=== PATIENT | female | born 1970 | race Caucasian/White ===

== ENCOUNTER 2020-05-03 06:01 | Emergency (ER) | payer OTHER ==
[2020-05-03] MEDS ORDERED: SODIUM CHLORIDE 0.9% 500 ML 500 ML IV STA (06:08)
[2020-05-03 06:13] VITALS: RESP 18
[2020-05-03 06:26] LABS: Basophils # (A) 0.1 k/uL (0-0.2); Basophils % (A) 1 %; Eosinophils # (A) 0.2 k/uL (0-0.7); Eosinophils % (A) 2 %; HCT 41.1 % (34.0-46.0); HGB 14.2 gm/dL (11.4-16.0); Lymphocytes # (A) 2.2 k/uL (1.0-4.8); Lymphocytes % (A) 21 %; MCH 30.6 pg (25.0-35.0); MCHC 34.5 g/dL (31.0-37.0); MCV 88.6 fL (80.0-100.0); Mean Platelet Volume 8.4; Monocytes # (A) 0.4 k/uL (0-1.0); Monocytes % (A) 4 %; Neutrophils # (A) 7.7 k/uL (1.3-7.7); Neutrophils % (A) 73 %; Platelet Count 178 k/uL (150-450); RBC 4.64 m/uL (3.80-5.40); RDW 12.2 % (11.5-15.5); WBC 10.6 k/uL (3.8-10.6)
[2020-05-03 06:36] LABS: ALT 12 U/L (4-34); AST 16 U/L (14-36); African American GFR (CKD) >90 (>60 ml/min/1.73 sqM); Albumin 3.4 g/dL (3.5-5.0); Alkaline Phosphatase <20 U/L (38-126); Anion Gap 4 mmol/L; Blood Urea Nitrogen 10 mg/dL (7-17); Calcium 8.7 mg/dL (8.4-10.2); Carbon Dioxide 24 mmol/L (22-30); Chloride 109 mmol/L (98-107); Glucose 96 mg/dL (74-99); Magnesium 1.5 mg/dL (1.6-2.3); Non-African American GFR(CKD) >90 (>60 ml/min/1.73 sqM); Sodium 137 mmol/L (137-145); Total Bilirubin 0.5 mg/dL (0.2-1.3); Total Protein 5.7 g/dL (6.3-8.2)
[2020-05-03 06:37] LABS: INR 1.1 (<1.2); Partial Thromboplastin Time 26.9 sec (22.0-30.0); Prothrombin Time 10.8 sec (9.0-12.0)
[2020-05-03] MEDS: fentaNYL (PF) 50 MCG/ML 2 ML AMP IVP PRN ×2 (06:40→09:05)
[2020-05-03] MEDS ORDERED: MAGNESIUM SULFATE-D5W PMX 1 GM in DEXTROSE/WATER 1 100ML.BAG IVPB ONE (06:40)
--- NOTE | 2020-05-03 07:20 | ED ---
Chest Pain HPI - General Chief Complaint: Chest Pain Stated Complaint: Chest Pain Time Seen by Provider: 05/03/20 06:08 Source: patient, EMS Mode of arrival: EMS - History of Present Illness Initial Comments: Ailin is a 50yo female with previous diagnosis of HTN, currently not on medications, currently not following with any primary care physician. Patient presents the ER today for evaluation of sudden onset of retrosternal chest pain. Patient reports pain woke her from sleep, had no associate shortness of breath, lightheadedness, diaphroesis, nausea or vomiting. She has no known cardiac disease, no history of blood clots. - Related Data Home Medications Medication Instructions Recorded Confirmed No Known Home Medications 05/03/20 05/03/20 Allergies Allergy/AdvReac Type Severity Reaction Status Date / Time bee venom protein (honey bee) Allergy Swelling Verified 05/03/20 08:25 Review of Systems ROS Statement: Those systems with pertinent positive or pertinent negative responses have been documented in the HPI. ROS Other: All systems not noted in ROS Statement are negative. EKG Findings - EKG Comments: EKG Findings:: Initial EKG was obtained at 6:09 AM, rate is 73 rhythm is sinus there is a normal axis, normal intervals, MO 142, QRS 72, QTc is 407 there are no acute ST elevations or depressions there is T-wave inversions laterally no evidence of acute ischemia or infarction. A posterior EKG was obtained due to chest pain and hypotension, EKG was obtained at 626 exam, rate is 76 rhythm is sinus there is no acute ST elevations or depressions no evidence of acute ischemia or infarction. Past Medical History Past Medical History: Hypertension History of Any Multi-Drug Resistant Organisms: None Reported Past Surgical History: Tubal Ligation Additional Past Surgical History / Comment(s): eye surgery Past Psychological History: No Psychological Hx Reported Smoking Status: Current every day smoker Past Alcohol Use History: None Reported Past Drug Use History: None Reported Course Vital Signs 05/03/20 05/03/20 05/03/20 06:01 07:38 07:55 Temperature 97.5 F L 98.2 F Pulse Rate 69 65 Respiratory 18 18 Rate Blood Pressure 91/51 94/43 86/47 Blood Pressure [Left Arm] Blood Pressure [Right Arm] O2 Sat by Pulse 100 99 Oximetry 05/03/20 05/03/20 05/03/20 08:05 08:06 08:15 Temperature Pulse Rate 73 Respiratory Rate Blood Pressure 109/52 Blood Pressure 107/49 [Left Arm] Blood Pressure 115/54 [Right Arm] O2 Sat by Pulse 100 Oximetry 05/03/20 05/03/20 05/03/20 08:30 08:45 09:00 Temperature 97.6 F Pulse Rate 78 72 80 Respiratory Rate Blood Pressure 103/48 104/48 107/49 Blood Pressure [Left Arm] Blood Pressure [Right Arm] O2 Sat by Pulse 99 99 99 Oximetry Chest Pain MDM - MDM She was seen and evaluated history is obtained from the patient this is a 50-year-old female with history of hypertension presenting with chest pain EKG was unremarkable Labs and imaging were ordered Chest x-ray was reviewed no significant abnormalities D-dimer was markedly elevated and a CT pulmonary embolism study was obtained which revealed a Timbo type A aortic dissection Patient had mild hypotension which improved with IV fluids, Patient care was discussed with [facility] in [place] were unable to accept the transfer Patient care was discussed with [facility], attempting to contact the thoracic surgeon She care was discussed with [facility] who cannot except the ascending dissections No callback from [facility] within 30 minutes decision was made to contact [facility] Awaiting callback from [facility] we received callback from [place] [employer] - Accepted by evangelina Meyers patient be taken to [facility] at bedside for transport Critical Care Time Critical Care Time: Yes Total Critical Care Time: 90 Critical Care Time: Critical Care Time 90 min Critical care time was exclusive of separately billable procedures and treating other patients and teaching time. Critical care was necessary to treat or prevent imminent or life-threatening deterioration. Given the critical condition in which the patient arrived, the patient was immediately assessed by myself and the nurse, and cardiac monitoring initiated due to the potential for rapid decompensation of the patient's clinical condition. During the course of the patients stay, I spent a considerable amount of time at the bedside performing serial re-evaluations of the patient's hemodynamic and clinical status because of the recognized potential threat to life or limb in this condition. I then had a chance to review not only all of the available current laboratory and radiographic studies obtained today, but I also reviewed old records available to me at the time. Additionally, any ancillary information available including patient access coordinator records were reviewed. Sequential vital signs were obtained. 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 Specs Out of Hospital Transfer - Requested Specifics: Surgical ICU ([facility])
--- NOTE | 2020-05-03 07:23 | XR ---
EXAMINATION TYPE: XR chest 2V DATE OF EXAM: 05/03/2020 COMPARISON: Prior chest x-ray 06/29/2018 HISTORY: Chest pain TECHNIQUE: Frontal and lateral views of the chest are obtained. FINDINGS: There is no focal air space opacity, pleural effusion, or pneumothorax seen. The cardiac silhouette size is within normal limits. The osseous structures are intact. IMPRESSION: No acute cardiopulmonary process.
[2020-05-03] MEDS ORDERED: SODIUM CHLORIDE 0.9% 1,000 ML IV ONE (07:56)
--- NOTE | 2020-05-03 08:02 | CT ---
EXAMINATION TYPE: CT chest angio for PE DATE OF EXAM: 05/03/2020 COMPARISON: HISTORY: Chest pain CT DLP: 238 mGycm Automated exposure control for dose reduction was used. CONTRAST: CT Chest for pulmonary embolism performed with without and with IV Contrast, patient injected with 10 0 ml mL of Isovue 370. FINDINGS: LUNGS: The lungs are grossly clear, there is no concerning parenchymal mass or nodule identified. Ca lcified granuloma present at the right lung apex posteriorly There is no pleural effusion or pneumoth orax seen. The tracheobronchial tree is patent. MEDIASTINUM: There is satisfactory enhancement of the pulmonary artery and its branches, there is no CT evidence for pulmonary embolism. There are no greater than 1 cm hilar or mediastinal lymph nodes. No pericardial effusion is seen. AORTA: Ascending aorta shows abnormal lower attenuation fluid surrounding the anterior and lateral m argins of the contrast column extending from the level of the root causing mass effect on the lumen, the aorta diameter measures approximately 4.5 cm, ascending aorta diameter is approximately 4.7 cm, t here is mass effect on the transverse aorta and dissection plane is noted to extend within the descen ding aorta. Celiac axis is not included on the exam, splenic artery does show enhancement. OTHER: No additional significant abnormality is seen. IMPRESSION: Timbo type A dissection of the thoracic aorta, results relayed telephonically to Dr. Baez at th e time of interpretation at exam.
[2020-05-03] MEDS ORDERED: fentaNYL (PF) 50 MCG/ML 2 ML AMP IVP STA (08:53)
[2020-05-03 09:12] VITALS: BP 107/49; PULSE 80; TEMP 97.6
== END 2020-05-03 09:16 | disposition other institution (70) ==
LOC: EC 06:01
DX: I71.01 Dissection of thoracic aorta (principal); R79.89 Other specified abnormal findings of blood chemistry; F17.200 Nicotine dependence, unspecified, uncomplicated; Z91.030 Bee allergy status; Z53.8 Procedure and treatment not carried out for other reasons
CPT/HCPCS: 99291; 99292; 96365; 96375; 96376; 96361; 36415; 93005; 85379; 83880; 80053; 83735; 84484; 85025; 85610; 85730; 71046; 71275; J3010; J3475; Q9967

== ENCOUNTER 2021-07-29 19:29 | Emergency (ER) | payer OTHER ==
[2021-07-29 20:21] VITALS: TEMP 98.4
[2021-07-29] MEDS ORDERED: ASPIRIN 81 MG PO STA (20:56)
[2021-07-29 21:34] LABS: Basophils # (A) 0.1 k/uL (0-0.2); Basophils % (A) 1 %; Eosinophils # (A) 0.2 k/uL (0-0.7); Eosinophils % (A) 2 %; HCT 40.7 % (34.0-46.0); HGB 13.8 gm/dL (11.4-16.0); Lymphocytes # (A) 1.9 k/uL (1.0-4.8); Lymphocytes % (A) 19 %; MCH 28.5 pg (25.0-35.0); MCV 83.9 fL (80.0-100.0); Mean Platelet Volume 9.2; Monocytes # (A) 0.5 k/uL (0-1.0); Monocytes % (A) 5 %; Neutrophils # (A) 7.3 k/uL (1.3-7.7); Neutrophils % (A) 73 %; Platelet Count 187 k/uL (150-450); RBC 4.85 m/uL (3.80-5.40)
--- NOTE | 2021-07-29 21:37 | XR ---
EXAMINATION TYPE: XR chest 2V DATE OF EXAM: 07/29/2021 COMPARISON: NONE TECHNIQUE: PA and lateral views submitted. HISTORY: Chest pain FINDINGS: The lungs are clear and there is no pneumothorax, pleural effusion, or focal pneumonia. Dilation of the aorta again noted which was noted on the prior CT scan of 05/03/2020 compatible with patient's hi story of aortic dissection. Postsurgical changes. No overt failure or pleural effusion. No definite c onsolidation. IMPRESSION: 1. Postsurgical change with prominence of the upper mediastinum which would be compatible with the maureen taylor's history of previous aortic dissection. 2. Prominent COPD in the left hemidiaphragm could represent air within the stomach. The patient has a n acute abdomen are concerning for free air correlate with CT scan..
[2021-07-29 21:43] LABS: ALT 19 U/L (4-34); AST 22 U/L (14-36); African American GFR (CKD) >90 (>60 ml/min/1.73 sqM); Albumin 4.2 g/dL (3.5-5.0); Alkaline Phosphatase 27 U/L (38-126); Anion Gap 10 mmol/L; Blood Urea Nitrogen 8 mg/dL (7-17); Calcium 9.9 mg/dL (8.4-10.2); Carbon Dioxide 23 mmol/L (22-30); Chloride 106 mmol/L (98-107); Glucose 121 mg/dL (74-99); Magnesium 1.8 mg/dL (1.6-2.3); Non-African American GFR(CKD) 80 (>60 ml/min/1.73 sqM); Potassium 3.9 mmol/L (3.5-5.1); Sodium 139 mmol/L (137-145); Total Bilirubin 0.6 mg/dL (0.2-1.3)
[2021-07-29 21:53] LABS: Prothrombin Time 10.8 sec (9.0-12.0)
[2021-07-29 21:56] LABS: Partial Thromboplastin Time 20.8 sec (22.0-30.0)
[2021-07-29 22:16] VITALS: RESP 18
--- NOTE | 2021-07-29 23:08 | ED ---
Chest Pain HPI - General Chief Complaint: Chest Pain Stated Complaint: L arm pain Time Seen by Provider: 07/29/21 20:51 Source: patient, family, RN notes reviewed, old records reviewed Mode of arrival: ambulatory Limitations: no limitations - History of Present Illness Initial Comments: Patient is a 51-year-old female, with history of aortic aneurysm, presenting to the emergency Department with complaints of intermittent chest tightness and left arm pain and has been started this morning. She states the tetanus has been very intermittent, lasts for only a few seconds. Currently she has no chest pain or tightness. She is describing some mild left upper arm pain in the triceps area. No left shoulder pain. No jaw pain. She denies any nausea or vomiting, no abdominal pain. She denies any viral type symptoms such as cough or congestion. Patient has no further complaints at this time. Upon arrival to the ER her vitals are stable. - Related Data Home Medications Medication Instructions Recorded Confirmed No Known Home Medications 05/03/20 05/03/20 Allergies Allergy/AdvReac Type Severity Reaction Status Date / Time bee venom protein (honey bee) Allergy Swelling Verified 07/29/21 20:21 Review of Systems ROS Statement: Those systems with pertinent positive or pertinent negative responses have been documented in the HPI. ROS Other: All systems not noted in ROS Statement are negative. EKG Findings - EKG Comments: EKG Findings:: Normal sinus rhythm, possible left atrial enlargement, no signs of acute ST segment elevation, she does have inverted T waves in lead 1 which is a change from her previous on 05/03/2020. Ventricular rate 85, LA interval 150, QT 374. EKG reviewed with Dr. Morales. Past Medical History Past Medical History: Hypertension Additional Past Medical History / Comment(s): Aortic Aneurysm History of Any Multi-Drug Resistant Organisms: None Reported Past Surgical History: Tubal Ligation Additional Past Surgical History / Comment(s): eye surgery Past Psychological History: No Psychological Hx Reported Smoking Status: Current every day smoker Past Alcohol Use History: None Reported Past Drug Use History: None Reported General Exam - General Exam Comments Initial Comments: GENERAL: Patient is well-developed and well-nourished. Patient is nontoxic and in no acute distress. HEAD: Atraumatic, normocephalic. EYES: Pupils equal round and reactive to light, extraocular movements intact, sclera anicteric, conjunctiva are normal. Eyelids were unremarkable. ENT: TMs normal, nares patent, oropharynx clear without exudates. Moist mucous membranes. NECK: Normal range of motion, supple without lymphadenopathy or JVD. LUNGS: Unlabored respirations. Breath sounds clear to auscultation bilaterally and equal. No wheezes rales or rhonchi. HEART: Regular rate and rhythm without murmurs, rubs or gallops. ABDOMEN: Soft, nontender, normoactive bowel sounds. No guarding, no rebound. No masses appreciated. : Deferred MUSCULOSKELETAL: Normal extremities with adequate strength and normal range of motion, no pitting or edema. No clubbing or cyanosis. NEUROLOGICAL: Patient is alert and oriented x 3. Motor and sensory are also intact. Cranial nerves II through XII grossly intact. Symmetrical smile. Normal speech, normal gait. PSYCH: Normal mood, normal affect. SKIN: Warm, Dry, normal turgor, no rashes or lesions noted. Limitations: no limitations Course Vital Signs 07/29/21 07/29/21 07/29/21 20:16 21:21 23:53 Temperature 98.4 F Pulse Rate 95 78 84 Respiratory 22 18 18 Rate Blood Pressure 158/95 138/86 126/79 O2 Sat by Pulse 98 95 95 Oximetry Chest Pain [facility] Patient is a 51-year-old female with history of of aortic aneurysm, presenting with intermittent chest tightness throughout today as well as some mild left arm pain. She has no chest pain or tightness here in the ER. Her vitals are stable. Patient's EKG shows normal sinus rhythm, no signs of acute ST segment elevation, she does have an inverted T-wave in lead 1 which is a change from her previous. Since labs are unremarkable including normal troponin. Patient is resting comfortably. I discussed with her these findings and recommended admission to observation for serial troponins as well as cardiac consult. Patient declined this. She states she just wants to go home and she'll follow- up with her dog food dough mixer tomorrow. Discussed the possibilities of the adverse events such as heart attack, patient continues wanting to go home. Patient will leave AMA. I urged her to follow up with her dog food dough mixer. Strict return parameters were discussed with her and she verbalized understanding. Case discussed with Dr. Morales. Disposition Clinical Impression: Chest pain Disposition: Left Against Medical Advice Condition: Stable Instructions (If sedation given, give patient instructions): Chest Pain (ED) Additional Instructions: Please return to the Emergency Department if symptoms worsen or any other concerns. Please follow up with your dog food dough mixer and/or family doctor. Is patient prescribed a controlled substance at d/c from ED?: No Referrals: Dallin Wise DO [Primary Care Provider] - 1-2 days Time of Disposition: 23:08
[2021-07-29 23:54] VITALS: BP 126/79; PULSE 84
== END 2021-07-29 23:54 | disposition left against medical advice (07) ==
LOC: EC 19:29
DX: R07.9 Chest pain, unspecified (principal); I10 Essential (primary) hypertension; F17.200 Nicotine dependence, unspecified, uncomplicated; Z98.51 Tubal ligation status
CPT/HCPCS: 36415; 71046; 80053; 83735; 83880; 84484; 85025; 85610; 85730; 93005; 99285

== ENCOUNTER 2021-10-20 12:40 | Observation (INO) | payer SELFPAY ==
--- NOTE | 2021-10-20 13:03 | ED ---
General Adult HPI - General Chief complaint: Chest Pain Stated complaint: chest pain, warm feeling throughout body Time Seen by Provider: 10/20/21 12:48 Source: patient, RN notes reviewed, old records reviewed Mode of arrival: ambulatory Limitations: no limitations - History of Present Illness Initial comments: Patient is a 51-year-old female with past medical history remarkable for aortic dissection type A status post repair one year ago, hypertension who presents emergency Department complaining of acute onset of chest pain. Pain started approximately 11:30am and I evaluated the patient at nearly 1 PM. She states she had sudden onset of chest pain and a feeling of "tiredness" in strange sensation watch over her. She states the chest pain is currently gone, however she still has a feeling of tiredness. Denies any shortness of breath, abdominal pain, nausea, vomiting. Denies any back pain, lightheadedness, dizziness. Denies any numbness at this time. She is able to ambulate. Denies any fevers, chills, cough, sick contacts. Has no other acute complaints at this time. Was not vaccinated for COVID-19. Presents over concern for the chest pain. Described chest pain as a throbbing, achy sensation substernally that does not radiate and is not currently present. Symptoms started after taking coricidin for the first time today. - Related Data Home Medications Medication Instructions Recorded Confirmed Aspirin EC [Ecotrin Low Dose] 81 mg PO DAILY 10/20/21 10/20/21 Atorvastatin [Lipitor] 80 mg PO HS 10/20/21 10/20/21 Carvedilol [Coreg] 25 mg PO BID 10/20/21 10/20/21 Guaifenesin/Dextromethorphan 1 tab PO Q6H PRN 10/20/21 10/20/21 [Coricidin Hbp Softgel] Allergies Allergy/AdvReac Type Severity Reaction Status Date / Time bee venom protein (honey bee) Allergy Swelling Verified 10/20/21 13:37 Review of Systems ROS Statement: Those systems with pertinent positive or pertinent negative responses have been documented in the HPI. Review of Systems: CONST: Denies fever EYES: Denies blurry vision ENT: Denies nasal congestion C/V: Endorses chest pain earlier that is since resolved. RESP: Denies shortness of breath GI: Denies abdominal pain : Denies dysuria SKIN: Denies rash. MSK: Denies joint pain. NEURO: Denies headache ROS Other: All systems not noted in ROS Statement are negative. Past Medical History Past Medical History: Hypertension Additional Past Medical History / Comment(s): Aortic Aneurysm dissection in 2019 History of Any Multi-Drug Resistant Organisms: None Reported Past Surgical History: Coronary Bypass/CABG, Tubal Ligation Additional Past Surgical History / Comment(s): eye surgery, double bypass 2019 Past Psychological History: No Psychological Hx Reported Smoking Status: Current every day smoker Past Alcohol Use History: None Reported Past Drug Use History: None Reported General Exam - General Exam Comments Initial Comments: General: Appears in no acute distress. HEAD: Normal with no signs of head trauma. EYES: PERRLA, EOMI, conjunctiva normal, no discharge. Pupils are 3 mm and equal bilaterally. 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 ENT: Hearing grossly intact, normal oropharynx. RESPIRATORY: Clear breath sounds bilaterally. No wheezes, rales, or rhonchi. C/V: Regular rate and rhythm. S1 and S2 auscultated, no edema, peripheral pulses 2+ and intact throughout. ABD: Abd is soft, nontender, nondistended EXT: Normal range of motion, no obvious deformity SKIN: No rashes or lesions observed on exposed skin. NEURO: Alert and oriented x 4. Cranial nerves II-XII intact. No focal sensory or strength deficits. Able to ambulate. Cerebellar function is intact as evident by normal finger to nose testing. NIH is 0. GCS is 15. Limitations: no limitations Course Vital Signs 10/20/21 12:45 Temperature 98 F Pulse Rate 86 Respiratory 18 Rate Blood Pressure 189/91 O2 Sat by Pulse 98 Oximetry Medical Decision Making - Medical Decision Making Based on the patient's presentation and physical exam, I'm concerned for cardiopulmonary cause for current symptoms. With her history of aortic dissection, as well as the subjective paresthesias following the onset of chest pain, we'll obtain CT angiogram of the chest, abdomen, pelvis to evaluate the aorta and the dissection repair. She was in agreement this plan. She is currently a symptomatically and resting comfortably. Aspirin will be held until after CT imaging. We also obtain a cardiac workup including troponin, EKG. She was in agreement this plan. EKG showed no signs of acute ischemia. Laboratory studies are remarkable for negative troponin. Remainder of her labs are unremarkable. CT angiogram rev ealed the aortic dissection repair of the arch and descending aorta. Patient has a patent dissection of the descending aorta which appears stable and unchanged except for the patency. There is no extension of the dissection and no new blockage. I discussed this with the radiologist on-call, Dr. Benoit we were both in agreement that the dissection is stable with no acute change. On reevaluation, patient is feeling improved at this time. I discussed the results of her laboratory studies and imaging. Explained that I would like to admitted to the hospital for further observation and evaluation by cardiology for left side chest pain. She was in agreement this plan. We discussed that he r symptoms could be secondary to starting Coricidin earlier today. She'll be connected to continuous cardiac monitoring and we will trend her troponin. She was in agreement this plan. I spoke with the band reamer machine operator on-call, Dr. Johnston who accepted the consult. We discussed aspirin she will be given 325 mg of aspirin. No indication for IV heparin at this time. I spoke with the admitting physician, Dr. Mas who accepted the patient. She was therefore admitted in stable condition to [facility] telemetry. - Lab Data Result diagrams: 10/20/21 13:09 10/20/21 13:09 Lab Results 10/20/21 10/20/21 10/20/21 Range/Units 13:09 13:09 13:09 WBC 8.2 (3.8-10.6) k/uL RBC 5.12 (3.80-5.40) m/uL Hgb 15.1 (11.4-16.0) gm/dL Hct 43.9 (34.0-46.0) % MCV 85.8 (80.0-100.0) fL MCH 29.4 (25.0-35.0) pg MCHC 34.3 (31.0-37.0) g/dL RDW 13.5 (11.5-15.5) % Plt Count 282 (150-450) k/uL MPV 8.5 Neutrophils % 69 % Lymphocytes % 22 % Monocytes % 5 % Eosinophils % 2 % Basophils % 1 % Neutrophils # 5.6 (1.3-7.7) k/uL Lymphocytes # 1.8 (1.0-4.8) k/uL Monocytes # 0.4 (0-1.0) k/uL Eosinophils # 0.1 (0-0.7) k/uL Basophils # 0.0 (0-0.2) k/uL PT 10.6 (9.0-12.0) sec INR 1.0 (<1.2) APTT 24.2 (22.0-30.0) sec Sodium 137 (137-145) mmol/L Potassium 4.0 (3.5-5.1) mmol/L Chloride 102 (98-107) mmol/L Carbon Dioxide 26 (22-30) mmol/L Anion Gap 9 mmol/L BUN 10 (7-17) mg/dL Creatinine 0.95 (0.52-1.04) mg/dL Est GFR (CKD-EPI)AfAm 82 (>60 ml/min/1.73 sqM) Est GFR (CKD-EPI)NonAf 71 (>60 ml/min/1.73 sqM) Glucose 138 H (74-99) mg/dL Calcium 9.6 (8.4-10.2) mg/dL Magnesium 2.0 (1.6-2.3) mg/dL Total Bilirubin 0.7 (0.2-1.3) mg/dL AST 16 (14-36) U/L ALT 15 (4-34) U/L Alkaline Phosphatase 34 L (38-126) U/L Troponin I (0.000-0.034) ng/mL Total Protein 7.5 (6.3-8.2) g/dL Albumin 4.3 (3.5-5.0) g/dL 10/20/21 Range/Units 13:09 WBC (3.8-10.6) k/uL RBC (3.80-5.40) m/uL Hgb (11.4-16.0) gm/dL Hct (34.0-46.0) % MCV (80.0-100.0) fL MCH (25.0-35.0) pg MCHC (31.0-37.0) g/dL RDW (11.5-15.5) % Plt Count (150-450) k/uL MPV Neutrophils % % Lymphocytes % % Monocytes % % Eosinophils % % Basophils % % Neutrophils # (1.3-7.7) k/uL Lymphocytes # (1.0-4.8) k/uL Monocytes # (0-1.0) k/uL Eosinophils # (0-0.7) k/uL Basophils # (0-0.2) k/uL PT (9.0-12.0) sec INR (<1.2) APTT (22.0-30.0) sec Sodium (137-145) mmol/L Potassium (3.5-5.1) mmol/L Chloride (98-107) mmol/L Carbon Dioxide (22-30) mmol/L Anion Gap mmol/L BUN (7-17) mg/dL Creatinine (0.52-1.04) mg/dL Est GFR (CKD-EPI)AfAm (>60 ml/min/1.73 sqM) Est GFR (CKD-EPI)NonAf (>60 ml/min/1.73 sqM) Glucose (74-99) mg/dL Calcium (8.4-10.2) mg/dL Magnesium (1.6-2.3) mg/dL Total Bilirubin (0.2-1.3) mg/dL AST (14-36) U/L ALT (4-34) U/L Alkaline Phosphatase (38-126) U/L Troponin I <0.012 (0.000-0.034) ng/mL Total Protein (6.3-8.2) g/dL Albumin (3.5-5.0) g/dL - EKG Data -: EKG Interpreted by Me EKG Comments: 12-lead Electrocardiogram Interpretation Note EKG was reviewed and interpreted by myself. 12-lead ECG performed at 1300 is interpreted by me as revealing normal sinus rhythm at a rate of 88 beats per minute. [place] is normal. VT interval is 156 ms, QRS duration is 94 ms, QTc is 428 ms.. There were no ST or T wave abnormalities to suggest myocardial ischemia or injury. R wave progression across the precordium was satisfactory. By my interpretation this EKG is non-diagnostic for acute ischemia. Disposition Clinical Impression: Chest pain of unknown etiology, History of repair of dissecting aneurysm of ascending thoracic aorta Disposition: ADMITTED IP TO THIS HOSP Condition: Stable
[2021-10-20 13:36] LABS: Partial Thromboplastin Time 24.2 sec (22.0-30.0); Prothrombin Time 10.6 sec (9.0-12.0)
[2021-10-20 13:39] LABS: Basophils % (A) 1 %; Eosinophils # (A) 0.1 k/uL (0-0.7); Eosinophils % (A) 2 %; HCT 43.9 % (34.0-46.0); HGB 15.1 gm/dL (11.4-16.0); Lymphocytes # (A) 1.8 k/uL (1.0-4.8); Lymphocytes % (A) 22 %; MCH 29.4 pg (25.0-35.0); MCHC 34.3 g/dL (31.0-37.0); MCV 85.8 fL (80.0-100.0); Mean Platelet Volume 8.5; Monocytes # (A) 0.4 k/uL (0-1.0); Monocytes % (A) 5 %; Neutrophils # (A) 5.6 k/uL (1.3-7.7); Neutrophils % (A) 69 %; Platelet Count 282 k/uL (150-450); RBC 5.12 m/uL (3.80-5.40); RDW 13.5 % (11.5-15.5); WBC 8.2 k/uL (3.8-10.6)
[2021-10-20 13:40] LABS: Albumin 4.3 g/dL (3.5-5.0); Calcium 9.6 mg/dL (8.4-10.2); Total Bilirubin 0.7 mg/dL (0.2-1.3); Total Protein 7.5 g/dL (6.3-8.2)
--- NOTE | 2021-10-20 13:56 | CT ---
EXAMINATION TYPE: CT angio thor/abd pel aorta DATE OF EXAM: 10/20/2021 COMPARISON: 05/03/2020 HISTORY: history of dissection repair. Chest pain CT DLP: 1866.9 mGycm Automated exposure control for dose reduction was used. Contrast: None Technique: Axial images 5 mm thick sections. Reconstructed images in the coronal and sagittal plane. Three-D reconstructed images performed by the technologist on a separate computer are reviewed. FINDINGS: There is a three-vessel arch. There appears to be a fold within the ascending thoracic aorta. This co uld be the residual of a prior dissection. There is a dissection at the distal descending thoracic aorta with 2 flow lumens. Superior mesenteric artery and celiac axis are patent. Renal arteries are patent bilaterally. Dissection extends to the mid abdominal aorta. No aneurysmal dilatation is evident. No extravasation of contrast is evident. Th is appears improved from the comparison CT of the chest of 05/03/2020. There appears to be a vascular structure running adjacent to the aortic arch and descending thoracic aorta. Bifurcation of the aorta appears normal. Common iliac arteries internal and external iliac arteries a re patent. The common femoral arteries are patent. IMPRESSION: 1. PATENT AORTIC DISSECTION WITHIN THE DISTAL DESCENDING THORACIC AORTA EXTENDING TO THE MID ABDOMINA L AORTA.
[2021-10-20] MEDS ORDERED: ASPIRIN 81 MG PO STA (14:27)
[2021-10-20] MEDS ORDERED: NALOXONE 0.4 MG/ML 1 ML VIAL IV PRN (14:32)
[2021-10-20] MEDS ORDERED: ONDANSETRON 4 MG/2 ML VIAL IVP PRN (14:32)
[2021-10-20] MEDS ORDERED: ACETAMINOPHEN TAB 325 MG TAB PO PRN (14:32)
[2021-10-20 16:56] LABS: HCT 42.2 % (34.0-46.0); HGB 14.1 gm/dL (11.4-16.0); MCH 28.7 pg (25.0-35.0); MCHC 33.4 g/dL (31.0-37.0); Mean Platelet Volume 8.5; Platelet Count 249 k/uL (150-450); RBC 4.91 m/uL (3.80-5.40); RDW 12.8 % (11.5-15.5); WBC 11.9 k/uL (3.8-10.6)
[2021-10-20] MEDS: HEPARIN SODIUM,PORCINE/PF 5,000 UNIT/0.5 ML SYRINGE SQ SCH (19:35)
[2021-10-20] MEDS: carvediloL 12.5 MG TAB PO SCH (19:40)
--- NOTE | 2021-10-20 20:52 | HP ---
HISTORY AND PHYSICAL CHIEF COMPLAINT: Chest pain. HISTORY OF PRESENT ILLNESS: This 51-year-old woman with a past medical history of hypertension, aortic aneurysm dissection in 12/08, repaired elsewhere, history of CAD, being followed by Dr. Wise in the outpatient setting, apparently had chest pain in the anterior part of the chest which started this morning. It was sharp in character, short-lasting, but subsequently patient had a warm feeling and some feeling of tiredness and a strange sensation all over her. The patient came to [facility] and was admitted for further evaluation and treatment. WBC was 11.9. The troponins were negative. The patient had a thoracic aortic CT scan which I reviewed personally; aortic dissection within the distal descending thoracic aortic extending to the mid abdominal aortic artery was noted, which is unchanged compared to the previous CT scan. The patient was admitted for further evaluation and treatment. Cardiology has been consulted. There is no history of any fever, rigors or chills. No history of headache, loss of consciousness, seizures at this time. PAST MEDICAL HISTORY: History of CAD, CABG, tubal ligation, history of hypertension, history of aortic aneurysm dissection, as mentioned earlier. HOME MEDICATIONS: Guaifenesin, Coreg, Lipitor, Ecotrin. Doses are reviewed. ALLERGIES: HONEY BEE. FAMILY HISTORY: No history of heart disease or strokes in the family. SOCIAL HISTORY: History of smoking. No history of alcohol intake. REVIEW OF SYSTEMS: ENT: No diminished hearing. No diminished vision. CARDIOVASCULAR SYSTEM: As mentioned earlier. RESPIRATORY SYSTEM: As mentioned earlier. GI: No nausea, vomiting, diarrhea. : No dysuria. NERVOUS SYSTEM: No numbness, weakness. ALLERGY/IMMUNOLOGY: No asthma or hay fever. MUSCULOSKELETAL: As mentioned earlier. HEMATOLOGY/ONCOLOGY: No history of anemia. ENDOCRINE: No history of diabetes or hypothyroidism. CONSTITUTIONAL: As mentioned earlier. DERMATOLOGY: Negative. RHEUMATOLOGY: Negative. PSYCHIATRY: As mentioned earlier. PHYSICAL EXAMINATION: Patient alert and oriented x3. Pulse 86, blood pressure 136/80, respiration 20, temperature 98 degrees, pulse ox 96% on room air. HEENT: Conjunctivae normal. NECK: No jugular venous distention. CARDIOVASCULAR: S1, S2 muffled. RESPIRATION: Breath sounds diminished at the bases. No rhonchi. No crackles. ABDOMEN: Soft, nontender. No mass palpable. LEGS: No edema. No swelling. NERVOUS SYSTEM: Higher functions as mentioned earlier. Moves all 4 limbs. No focal motor or sensory deficit. LYMPHATICS: No lymph node palpable in neck, axillae or groin. SKIN: No ulcer, rash, bleeding. JOINTS: No active deforming arthropathy. LABS: CBC within normal limits. Otherwise, glucose 138. CT scan noted. ASSESSMENT: 1. Chest pain. Rule out coronary artery disease. 2. History of aortic dissection and repair previously. 3. History of hypertension. 4. History of nicotine dependence. 5. Increased white count. 6. Increased random glucose. RECOMMENDATIONS AND DISCUSSION: In this 51-year-old woman who presented with multiple complex medical issues, we will monitor the patient closely, continue the current medications, continue symptomatic treatment. Otherwise, cardiology consultation. We will resume the home medications. Guarded prognosis because of multiple complex medical issues. Further recommendations to follow. A copy of this dictation is being forwarded to Dr. Wise, who is the primary physician. MMODL / IJN: [id number] /
[2021-10-20] MEDS ORDERED: ATORVASTATIN 80 MG TAB PO SCH (21:00)
[2021-10-21] MEDS: HEPARIN SODIUM,PORCINE/PF 5,000 UNIT/0.5 ML SYRINGE SQ SCH ×2 (02:42→07:49)
[2021-10-21 07:48] VITALS: TEMP 98.1
[2021-10-21] MEDS: carvediloL 12.5 MG TAB PO SCH (07:49)
--- NOTE | 2021-10-21 08:21 | XR ---
EXAMINATION TYPE: XR chest 1V portable DATE OF EXAM: 10/21/2021 COMPARISON: Chest x-ray 07/29/2021 HISTORY: Aortic dissection, abnormal chest x-ray TECHNIQUE: Single frontal view of the chest is obtained. FINDINGS: There is no focal air space opacity, pleural effusion, or pneumothorax seen. The cardiac silhouette size is stable. There are overlying leads, patient is post median sternotomy. The osseou s structures are intact. IMPRESSION: No acute process.
[2021-10-21] MEDS ORDERED: ASPIRIN 81 MG PO SCH (09:00)
[2021-10-21 09:14] LABS: Basophils # (A) 0.04 X 10*3/uL (0.00-0.10); Basophils % (A) 0.5 %; Eosinophils # (A) 0.13 X 10*3/uL (0.04-0.35); Eosinophils % (A) 1.5 %; HCT 40.4 % (37.2-46.3); HGB 13.3 g/dL (12.0-15.0); Lymphocytes # (A) 2.08 X 10*3/uL (0.90-5.00); Lymphocytes % (A) 23.8 %; MCH 28.5 pg (27.0-32.0); MCHC 32.9 g/dL (32.0-37.0); MCV 86.5 fL (80.0-97.0); Mean Platelet Volume 11.6 fL (9.5-12.2); Monocytes # (A) 0.47 X 10*3/uL (0.20-1.00); Monocytes % (A) 5.4 %; Neutrophils # (A) 5.99 X 10*3/uL (1.80-7.70); Neutrophils % (A) 68.5 %; Platelet Count 228 X 10*3/uL (140-440); RBC 4.67 X 10*6/uL (4.10-5.20); RDW 12.7 % (11.5-14.5); WBC 8.74 X 10*3/uL (4.50-10.00)
[2021-10-21 09:33] LABS: Anion Gap 13.2 mmol/L (10.00-18.00); BUN/Creat Ratio 9.11 Ratio (12.00-20.00); Blood Urea Nitrogen 8.2 mg/dL (9.0-27.0); Calcium 9.4 mg/dL (8.7-10.3); Carbon Dioxide 22.8 mmol/L (20.0-27.5); Non-African American GFR(CKD) 75.1 (60.0-200.0); Potassium 4.2 mmol/L (3.5-5.5)
--- NOTE | 2021-10-21 10:56 | P.CRDCN ---
History of Present Illness History of present illness: HISTORY OF PRESENTING ILLNESS This is a pleasant 51-year-old female past medical history significant for aortic dissection type A status post repair in May 03, 2020, 2 vessel CABG on May 03, 2020 as well, hypertension, dyslipidemia. She follows in the office with Dr. Small at [facility], she has a follow appointment in December 2021. We have been asked to see in consultation for chest pain. Patient presents to the ER with complaints of chest pain. Yesterday, she was watching TV, had an episode of left sided sharp discomfort. Non-radiating, non-exertional. She states it lasted about 15 seconds. She had associated "feeling warm and tingling" and felt lightheaded. She denies diaphoresis, nausea, vomiting, palpitations, shortness of breath, lower extremity edema, fatigue, weakness, syncope or near syncope. She denies any specific aggravating or alleviating factors. She denies symptoms of orthopnea or PND. She denies and history of [place], Stroke, Diabetes. She is a non-smoker. She states she took Coricidin twice before the episode for prophylaxis since she was around a family member with a cold. DIAGNOSTICS EKG reveals sinus rhythm, heart rate 80, nonspecific STT wave abnormality, T wave inversion in lateral leads. Prior EKG with similar findings Chest xray no acute cardiopulmonary process. Thoracic CT revealed patent iliac dissection within the distal ascending thoracic aorta extending to the mid abdominal aorta. No aneurysmal dilatation is evident. No extrication of contrast is evident. Renal arteries are patent bilaterally Laboratory reviewed, CBC unremarkable, sodium 137, potassium 4.0, BUN 10, serum creatinine 0.9, magnesium 2.0, troponin negative 3, covid-19 negative Current home medications include carvedilol 25 mg twice a day, atorvastatin 80 mg nightly, aspirin 81 mg daily, guaifenesin/dextromethophan PRN REVIEW OF SYSTEMS At the time of my exam: CONSTITUTIONAL: Denies fever or chills. CARDIOVASCULAR: Denies chest pain, shortness of breath, orthopnea, PND or palpitations. RESPIRATORY: Denies cough. GASTROINTESTINAL: Denies abdominal pain, diarrhea, constipation, nausea or vomiting. MUSCULOSKELETAL: Denies myalgias. NEUROLOGIC: Denies numbness, tingling, headache or weakness. ENDOCRINE: Denies fatigue, weight change, polydipsia or polyurina. GENITOURINARY: Denies burning, hematuria or urgency with micturation. HEMATOLOGIC: Denies history of anemia or bleeding. PHYSICAL EXAMINATION Blood pressure 141/80, heart rate 80, afebrile, saturations greater than 92% on room air CONSTITUTIONAL: No apparent distress. HEENT: Head is normocephalic. Pupils are equal, round. Sclerae anicteric. Mucous membranes of the mouth are moist. No JVD. No carotid bruit. CHEST EXAMINATION: Lungs are clear to auscultation. No chest wall tenderness is noted on palpation or with deep breathing. HEART EXAMINATION: Regular rate and rhythm. S1, S2 heard. Systolic ejection murmur at apex noted ABDOMEN: Soft, nontender. Positive bowel sounds. EXTREMITIES: 2+ peripheral pulses, no lower extremity edema and no calf tenderness. SKIN: warm, dry NEUROLOGIC EXAMINATION: Patient is awake, alert and oriented x3. ASSESSMENT Chest pain, atypical, acute coronary syndrome has been ruled out, likely musculoskeletal or anxiety Aortic dissection type A status post repair in May 03, 2020 History of 2 vessel CABG on May 03, 2020 History of Hypertension Dyslipidemia PLAN An acute coronary event has been ruled out with no EKG evidence of ischemia and negative cardiac enzymes. From a cardiology perspective, patient stable to be discharged home. Follow up with her primary quality assurance technician Dr. Small Thank you kindly for this consultation. Nurse Practitioner note has been reviewed, I agree with a documented findings and plan of care. Patient was seen and examined. Past Medical History Past Medical History: Hypertension Additional Past Medical History / Comment(s): Aortic Aneurysm dissection in 2019 History of Any Multi-Drug Resistant Organisms: None Reported Past Surgical History: Coronary Bypass/CABG, Tubal Ligation Additional Past Surgical History / Comment(s): eye surgery, double bypass 2019 Past Psychological History: No Psychological Hx Reported Smoking Status: Current every day smoker Past Alcohol Use History: None Reported Past Drug Use History: None Reported Medications and Allergies Home Medications Medication Instructions Recorded Confirmed Type Aspirin EC [Ecotrin Low Dose] 81 mg PO DAILY 10/20/21 10/20/21 History Atorvastatin [Lipitor] 80 mg PO HS 10/20/21 10/20/21 History Carvedilol [Coreg] 25 mg PO BID 10/20/21 10/20/21 History Guaifenesin/Dextromethorphan 1 tab PO Q6H PRN 10/20/21 10/20/21 History [Coricidin Hbp Softgel] Allergies Allergy/AdvReac Type Severity Reaction Status Date / Time bee venom protein (honey bee) Allergy Swelling Verified 10/20/21 13:37 Physical Exam Vitals: Vital Signs Temp Pulse Resp BP Pulse Ox 10/21/21 02:25 91 20 120/66 96 10/20/21 22:40 85 20 134/84 97 10/20/21 19:40 98.0 F 96 20 149/95 98 10/20/21 16:58 86 20 156/80 96 10/20/21 15:15 91 20 147/81 97 10/20/21 13:05 87 20 170/90 97 10/20/21 12:45 98 F 86 18 189/91 98 Results 10/21/21 06:51 10/21/21 06:51 Cardiac Enzymes 10/20/21 10/20/21 10/20/21 Range/Units 13:09 13:09 16:13 AST 16 (14-36) U/L Troponin I <0.012 <0.012 (0.000-0.034) ng/mL 10/20/21 Range/Units 21:22 AST (14-36) U/L Troponin I <0.012 (0.000-0.034) ng/mL Coagulation 10/20/21 Range/Units 13:09 PT 10.6 (9.0-12.0) sec APTT 24.2 (22.0-30.0) sec CBC 10/20/21 10/20/21 Range/Units 13:09 16:13 WBC 8.2 11.9 H (3.8-10.6) k/uL RBC 5.12 4.91 (3.80-5.40) m/uL Hgb 15.1 14.1 (11.4-16.0) gm/dL Hct 43.9 42.2 (34.0-46.0) % Plt Count 282 249 (150-450) k/uL Comprehensive Metabolic Panel 10/20/21 Range/Units 13:09 Sodium 137 (137-145) mmol/L Potassium 4.0 (3.5-5.1) mmol/L Chloride 102 (98-107) mmol/L Carbon Dioxide 26 (22-30) mmol/L BUN 10 (7-17) mg/dL Creatinine 0.95 (0.52-1.04) mg/dL Glucose 138 H (74-99) mg/dL Calcium 9.6 (8.4-10.2) mg/dL AST 16 (14-36) U/L ALT 15 (4-34) U/L Alkaline Phosphatase 34 L (38-126) U/L Total Protein 7.5 (6.3-8.2) g/dL Albumin 4.3 (3.5-5.0) g/dL Current Medications Generic Name Dose Route Start Last Admin Trade Name Freq PRN Reason Stop Dose Admin Acetaminophen 650 mg 10/20/21 14:32 Acetaminophen Tab 325 Mg Tab PO Q6HR PRN Mild Pain or Fever > 100.5 Aspirin 81 mg 10/21/21 09:00 Aspirin 81 Mg PO DAILY [facility] Atorvastatin Calcium 80 mg 10/20/21 21:00 10/20/21 21:17 Atorvastatin 80 Mg Tab PO 80 mg HS JOHN Administration Carvedilol 25 mg 10/20/21 17:30 10/20/21 19:40 Carvedilol 12.5 Mg Tab PO 25 mg BID-W/MEALS JOHN Administration Heparin Sodium (Porcine) 5,000 unit 10/20/21 16:00 10/21/21 02:42 Heparin Sodium,Porcine/Pf 5,000 Unit/0.5 Ml Syringe SQ Not Given Q8HR JOHN Naloxone HCl 0.2 mg 10/20/21 14:32 Naloxone 0.4 Mg/Ml 1 Ml Vial IV Q2M PRN Opioid Reversal Ondansetron HCl 4 mg 10/20/21 14:32 Ondansetron 4 Mg/2 Ml Vial IVP Q8HR PRN Nausea And Vomiting 10/20/21 16:13 10/20/21 13:09
[2021-10-21 11:36] VITALS: BP 135/91
[2021-10-21 13:38] VITALS: PULSE 86; RESP 18
--- NOTE | 2021-10-22 06:54 | DS ---
DISCHARGE SUMMARY DATE OF SERVICE: 10/21/2021 FINAL DIAGNOSES: 1. Chest pain possibly musculoskeletal, myocardial infarction ruled out. 2. History of aortic dissection repair previously. 3. History of coronary artery disease, coronary artery bypass grafting. 4. History of hypertension. 5. History of nicotine dependence. 6. History of increased WBC. 7. Increased random blood sugar. DISCHARGE DISPOSITION: The patient discharged in stable condition with guarded prognosis. HISTORY OF PRESENT ILLNESS: This is a 51-year-old woman with a past medical history of multiple medical problems as mentioned earlier, being followed by Dr. Wise in the outpatient setting admitted with chest pain as mentioned earlier. The patient had recent dissection and procedure including 2 vessel bypass elsewhere. The patient was monitored closely. Myocardial infarction ruled out. CT scan did not show any new abnormalities. The dissection part was visualized in the lower part of the aorta. The patient is asymptomatic and keen on going home. The patient will be discharged in stable condition with guarded prognosis. On exam, vitals are stable. Cardiovascular: S1, S2. Abdomen soft. Nervous System: No focal deficits. Labs are also within normal limits. DISCHARGE INSTRUCTIONS: 1. Diet is cardiac diet. 2. Activity limited until followup. 3. Follow up with Dr. Wise 2 to 3 days. 4. Follow up with Cardiology as recommended. MEDICATIONS: 1. Coreg 25 mg p.o. b.i.d. 2. Guaifenesin as before. 3. Ecotrin 81 mg daily. 4. Lipitor 80 mg q.h.s. 5. Tylenol p.r.n. MMODL / IJN: [id number] / [facility]LANDDerek
== END 2021-10-21 13:36 | disposition home or self-care (01) ==
LOC: EC 12:40 → 6NMEDSUR 14:32
PROVIDERS: ADMIT Internal Medicine; ATTEND Internal Medicine
DX: R07.9 Chest pain, unspecified (principal); R07.2 Precordial pain; R20.2 Paresthesia of skin; R42 Dizziness and giddiness; Z20.822 Contact with and (suspected) exposure to COVID-19; I71.2 Thoracic aortic aneurysm, without rupture; I25.10 Atherosclerotic heart disease of native coronary artery without angina pectoris; I10 Essential (primary) hypertension; F17.200 Nicotine dependence, unspecified, uncomplicated; E78.5 Hyperlipidemia, unspecified; Z79.82 Long term (current) use of aspirin; Z79.899 Other long term (current) drug therapy; Z91.030 Bee allergy status; Z95.1 Presence of aortocoronary bypass graft; Z98.51 Tubal ligation status
CPT/HCPCS: 99285; 96372; 36415; 93005; 80053; 80048; 83735; 84484; 85025 ×2; 85027; 85610; 85730; 87635; 71045; 71275; 74174; G0378 ×2; Q9967; J1644

== ENCOUNTER 2022-04-29 20:00 | Emergency (ER) | payer OTHER ==
[2022-04-29 20:16] VITALS: BP 157/95; PULSE 93; RESP 18; TEMP 98.2
[2022-04-29 20:54] LABS: Basophils # (A) 0.1 k/uL (0-0.2); Basophils % (A) 1 %; Eosinophils # (A) 0.2 k/uL (0-0.7); Eosinophils % (A) 2 %; HCT 42.7 % (34.0-46.0); HGB 14.5 gm/dL (11.4-16.0); Lymphocytes # (A) 1.8 k/uL (1.0-4.8); Lymphocytes % (A) 13 %; MCH 28.5 pg (25.0-35.0); MCHC 33.9 g/dL (31.0-37.0); MCV 83.9 fL (80.0-100.0); Mean Platelet Volume 8.5; Monocytes # (A) 0.4 k/uL (0-1.0); Monocytes % (A) 3 %; Neutrophils # (A) 10.7 k/uL (1.3-7.7); Neutrophils % (A) 80 %; Platelet Count 252 k/uL (150-450); RBC 5.08 m/uL (3.80-5.40); RDW 13.5 % (11.5-15.5); WBC 13.3 k/uL (3.8-10.6)
[2022-04-29 21:03] LABS: Prothrombin Time 11.2 sec (9.0-12.0)
[2022-04-29 21:14] LABS: Albumin 4.5 g/dL (3.5-5.0); Potassium 2.8 mmol/L (3.5-5.1); Total Bilirubin 0.5 mg/dL (0.2-1.3); Total Protein 7.4 g/dL (6.3-8.2)
--- NOTE | 2022-04-29 21:33 | XR ---
EXAMINATION TYPE: XR chest 2V DATE OF EXAM: 04/29/2022 9:17 PM COMPARISON: Chest radiographs from 10/21/2021 TECHNIQUE: XR chest 2V Frontal and lateral views of the chest. CLINICAL INDICATION:Female, 52 years old with history of chest pain; FINDINGS: Lungs/Pleura: There is no evidence of pleural effusion, focal consolidation, or pneumothorax. Pulmonary vascularity: Unremarkable. Heart/mediastinum: Cardiomediastinal silhouette is unremarkable. Musculoskeletal: No acute osseous pathology. Midline sternotomy wires and surgical clips project over the mediastinum. IMPRESSION: No acute cardiopulmonary disease/process.
[2022-04-29] MEDS ORDERED: POTASSIUM CHLORIDE ER 20 MEQ TAB.ER PO STA (22:27)
[2022-04-29] MEDS ORDERED: traMADol 50 MG TAB PO STA (22:40)
--- NOTE | 2022-04-29 23:34 | ED ---
Chest Pain HPI - General Chief Complaint: Chest Pain Stated Complaint: L arm pain,Hypertension Time Seen by Provider: 04/29/22 22:12 Source: patient, family Mode of arrival: ambulatory - History of Present Illness Initial Comments: This patient is a 52-year-old woman with history of previous aortic dissection who presents with complaint of left arm pain. Patient indicates that the pain started on the left side she points to the trapezius area and goes down her arm. She is concerned because of her history. She did not have any anginal type symptoms, no diaphoresis, dyspnea, nausea or vomiting. There was no real pain in the chest. MD Complaint: chest pain, other (Arm pain) -: hour(s) Onset: during rest Pain Radiation: LUE Quality: aching Consistency: constant Improves With: nothing Worsens With: movement Treatments Prior to Arrival: none - Related Data Home Medications Medication Instructions Recorded Confirmed Aspirin EC [Ecotrin Low Dose] 81 mg PO DAILY 10/20/21 10/20/21 Atorvastatin [Lipitor] 80 mg PO HS 10/20/21 10/20/21 Guaifenesin/Dextromethorphan 1 tab PO Q6H PRN 10/20/21 10/20/21 [Coricidin Hbp Chest Kayode-Cough] carvediloL [Coreg] 25 mg PO BID 10/20/21 10/20/21 Previous Rx's Medication Instructions Recorded Acetaminophen Tab [Tylenol] 650 mg PO Q6HR PRN #30 tab 10/21/21 Allergies Allergy/AdvReac Type Severity Reaction Status Date / Time bee venom protein (honey bee) Allergy Swelling Verified 04/29/22 20:16 Review of Systems ROS Statement: Those systems with pertinent positive or pertinent negative responses have been documented in the HPI. ROS Other: All systems not noted in ROS Statement are negative. Constitutional: Denies: fever, chills, weakness Respiratory: Denies: cough, dyspnea Cardiovascular: Reports: as per HPI. Denies: chest pain, palpitations, edema Gastrointestinal: Denies: abdominal pain, nausea, vomiting, diarrhea Genitourinary: Denies: dysuria, hematuria Musculoskeletal: Denies: back pain Skin: Denies: rash Neurological: Denies: headache, weakness, numbness EKG Findings - EKG Results: EKG: interpreted by RAUL, sinus rhythm (rate 85 bpm), normal axis, normal QRS - Blocks, [place], Hypertrophy, ST Abn: Repolarization changes or abnormalities: nonspecific abnormality, ST segment, and/or T wave Past Medical History Past Medical History: Hypertension Additional Past Medical History / Comment(s): Aortic Aneurysm dissection in 2019 History of Any Multi-Drug Resistant Organisms: None Reported Past Surgical History: Coronary Bypass/CABG, Tubal Ligation Additional Past Surgical History / Comment(s): eye surgery, double bypass 2019, aortic dissection surgery 2019 Past Psychological History: No Psychological Hx Reported Smoking Status: Former smoker Past Alcohol Use History: None Reported Past Drug Use History: None Reported General Exam General appearance: alert, in no apparent distress Head exam: Present: atraumatic, normocephalic Eye exam: Present: normal appearance. Absent: scleral icterus, conjunctival injection ENT exam: Present: normal oropharynx Neck exam: Present: normal inspection Respiratory exam: Present: normal lung sounds bilaterally. Absent: respiratory distress, wheezes, rales, rhonchi, stridor Cardiovascular Exam: Present: regular rate, normal rhythm, normal heart sounds GI/Abdominal exam: Present: soft. Absent: distended, tenderness, guarding, rebound, rigid, mass Extremities exam: Present: normal inspection, normal capillary refill. Absent: pedal edema, calf tenderness Back exam: Present: normal inspection, other (Palpation of the patient's trapezius does reproduce her symptoms.). Absent: CVA tenderness (R), CVA tenderness (L) Neurological exam: Present: alert Skin exam: Present: warm, dry, intact, normal color. Absent: rash Course Vital Signs 04/29/22 20:08 Temperature 98.2 F Pulse Rate 93 Respiratory 18 Rate Blood Pressure 157/95 O2 Sat by Pulse 98 Oximetry Disposition Clinical Impression: Muscle strain, Hypokalemia Disposition: HOME SELF-CARE Condition: Good Instructions (If sedation given, give patient instructions): Chest Pain (ED) Is patient prescribed a controlled substance at d/c from ED?: No Referrals: Dallin Wise DO [Primary Care Provider] - 1-2 days
--- NOTE | 2022-04-30 05:43 | CT ---
EXAMINATION TYPE: CT angio thor/abd pel aorta DATE OF EXAM: 04/30/2022 COMPARISON: Prior CTA aorta October 20 2021 HISTORY: Chest pain. Prior dissection. CT DLP: 532 mGycm. Automated Exposure Control for Dose Reduction was Utilized. CONTRAST: CTA scan of the thorax, abdomen and pelvis is performed without and with IV Contrast, patient injecte d with 100 mL of Isovue 370. Dissection protocol with 3-D reconstructed images created on a [employer] workstation and reviewed. FINDINGS: VASCULAR: Noncontrast images show no suspicious hyperdense material to suggest intramural hematoma. T here are surgical sutures in the ascending aorta. There is stable aneurysmal prominence near the sutu res measuring up to 3.3 cm near the root axial image 63 and 4.3 x 3.1 cm just distal to the sutures w ith linear low density could reflect dissection flap or treatment change redemonstrated distal to thi s point there is no aneurysm or dissection in the arch or descending aorta. There is benign dissectio n beginning just above the diaphragm terminating just below the renal artery origin without extension into the celiac artery and SMA or renal arteries. The false lumen is suspected filling the left norma l artery. There is some blood flow in both. Patent SONIA. Patent iliac and femoral arteries. No signifi cant change or appearance from the prior CT. LUNGS: The lungs are grossly clear, there is no concerning parenchymal mass or nodule identified. T here is no pleural effusion or pneumothorax seen. The tracheobronchial tree is patent. MEDIASTINUM: There are no greater than 1 cm hilar or mediastinal lymph nodes. No cardiomegaly or pe ricardial effusion is seen. Overlying sternal wires are redemonstrated LIVER/GB: No significant abnormality is appreciated. PANCREAS: No significant abnormality is seen. SPLEEN: No significant abnormality is seen. ADRENALS: No significant abnormality is seen. KIDNEYS: No significant abnormality is seen. BOWEL: Incidental normal-appearing appendix. GENITAL ORGANS: Slightly retroflexed uterus. LYMPH NODES: No greater than 1cm abdominal or pelvic lymph nodes are appreciated. OSSEOUS STRUCTURES: No significant abnormality is seen. OTHER: Small fat-containing umbilical hernia. IMPRESSION: No significant new or acute findings. Postsurgical changes to the aorta with stable ascen ding aortic dissection or surgical change and stable focal dissection involving the descending aorta from lower thoracic level through the mid abdomen just below renal arteries. No enlarging aneurysm. N o new dissection seen. No new acute findings evident.
== END 2022-04-30 03:43 | disposition home or self-care (01) ==
LOC: EC 20:00
DX: T14.8XXA Other injury of unspecified body region, initial encounter (principal); E87.6 Hypokalemia; I10 Essential (primary) hypertension; Z87.891 Personal history of nicotine dependence; Z91.030 Bee allergy status; Z79.899 Other long term (current) drug therapy; Z79.82 Long term (current) use of aspirin; X58.XXXA Exposure to other specified factors, initial encounter
CPT/HCPCS: 36415; 93005; 85379; 80053; 84484; 85025; 85610; 71046; 71275; 74174; 99285; Q9967

== ENCOUNTER 2022-06-10 01:58 | Emergency (ER) | payer OTHER ==
[2022-06-10 02:12] VITALS: BP 149/80; PULSE 85; RESP 16; TEMP 97.9
[2022-06-10] MEDS ORDERED: ASPIRIN 81 MG PO STA (03:44)
[2022-06-10] MEDS ORDERED: SODIUM CHLORIDE 0.9% 1,000 ML IV STA ×2 (03:44→04:31)
--- NOTE | 2022-06-10 03:44 | ED ---
General Adult HPI - General Source: patient, RN notes reviewed Mode of arrival: ambulatory Limitations: no limitations <Haley Francisco - Last Filed: 06/10/22 05:16> <Patrick Beyer - Last Filed: 06/10/22 06:17> - General Chief complaint: Chest Pain Stated complaint: Chest pain Time Seen by Provider: 06/10/22 03:27 - History of Present Illness Initial comments: This is a 52-year-old female who presents to the emergency department for evaluation of sharp midsternal chest pain that woke her up out of sleep shortly after midnight. States the pain resolved quickly with no intervention, however she does have discomfort in her left shoulder accompanied by paresthesias in the left arm and tenderness around the left scapula. Patient states she has a history of an aortic dissection. States she has been taking her medications as prescribed but did have an elevated blood pressure reading at home. Denies any fever, chills, headache, dizziness, jaw pain, neck pain, abdominal pain, nausea, vomiting, diarrhea, or dysuria. (Haley Francisco) - Related Data Home Medications Medication Instructions Recorded Confirmed Aspirin EC [Ecotrin Low Dose] 81 mg PO DAILY 10/20/21 10/20/21 Atorvastatin [Lipitor] 80 mg PO HS 10/20/21 10/20/21 Guaifenesin/Dextromethorphan 1 tab PO Q6H PRN 10/20/21 10/20/21 [Coricidin Hbp Chest Kayode-Cough] carvediloL [Coreg] 25 mg PO BID 10/20/21 10/20/21 Previous Rx's Medication Instructions Recorded Acetaminophen Tab [Tylenol] 650 mg PO Q6HR PRN #30 tab 10/21/21 Allergies Allergy/AdvReac Type Severity Reaction Status Date / Time bee venom protein (honey bee) Allergy Swelling Verified 06/10/22 01:59 Review of Systems ROS Other: All systems not noted in ROS Statement are negative. <Haley Francisco - Last Filed: 06/10/22 05:16> ROS Other: All systems not noted in ROS Statement are negative. <Patrick Beyer - Last Filed: 06/10/22 06:17> ROS Statement: Those systems with pertinent positive or pertinent negative responses have been documented in the HPI. Past Medical History Past Medical History: Hypertension Additional Past Medical History / Comment(s): Aortic Aneurysm dissection in 2020 History of Any Multi-Drug Resistant Organisms: None Reported Past Surgical History: Coronary Bypass/CABG, Tubal Ligation Additional Past Surgical History / Comment(s): eye surgery, double bypass 2019, aortic dissection surgery 2019 Past Psychological History: No Psychological Hx Reported Smoking Status: Former smoker Past Alcohol Use History: None Reported Past Drug Use History: None Reported <Haley Francisco - Last Filed: 06/10/22 05:16> General Exam Limitations: no limitations (This is a pleasant, well-developed, well-nourished female in no acute distress. Initial temperature 97.9, pulse 85, respirations 16, blood pressure 149/80, pulse ox 98% on room air.) General appearance: alert, in no apparent distress Eye exam: Present: normal appearance. Absent: scleral icterus, conjunctival injection, periorbital swelling ENT exam: Present: normal oropharynx, mucous membranes moist Neck exam: Present: normal inspection, full ROM. Absent: tenderness, meningismus, lymphadenopathy Respiratory exam: Present: normal lung sounds bilaterally. Absent: respiratory distress, wheezes, rales, rhonchi, stridor, chest wall tenderness Cardiovascular Exam: Present: regular rate, normal rhythm, normal heart sounds. Absent: systolic murmur, diastolic murmur, rubs, gallop, clicks GI/Abdominal exam: Present: soft, normal bowel sounds. Absent: distended, tenderness, guarding, rebound, rigid Left Shoulder Exam: Present: normal inspection, full ROM, other (Tenderness upon palpation of the left scapula. Range of motion is intact.) Upper Arm exam: Present: normal inspection, full ROM, other (Complains of altered sensation to the outer aspect of the left upper arm extending to the left elbow). Absent: tenderness, swelling Elbow exam: Present: normal inspection, full ROM. Absent: tenderness, swelling Forearm Wrist exam: Present: normal inspection, full ROM. Absent: tenderness, swelling Hand Wrist exam: Present: normal inspection, full ROM. Absent: tenderness, swelling Vascular: Present: normal capillary refill, radial pulse, brachial pulse. Absent: vascular compromise, Pallo Back exam: Present: normal inspection. Absent: paraspinal tenderness, vertebral tenderness Neurological exam: Present: alert, oriented X3, CN II-XII intact Psychiatric exam: Present: normal affect, normal mood Skin exam: Present: warm, dry, intact, normal color. Absent: rash <Haley Francisco - Last Filed: 06/10/22 05:16> General appearance: alert, in no apparent distress Head exam: Present: atraumatic, normocephalic, normal inspection Eye exam: Present: normal appearance, PERRL, EOMI. Absent: scleral icterus, conjunctival injection, periorbital swelling ENT exam: Present: normal exam, mucous membranes moist Neck exam: Present: normal inspection. Absent: tenderness, meningismus, lymphadenopathy Respiratory exam: Present: normal lung sounds bilaterally. Absent: respiratory distress, wheezes, rales, rhonchi, stridor Cardiovascular Exam: Present: regular rate, normal rhythm, normal heart sounds. Absent: systolic murmur, diastolic murmur, rubs, gallop, clicks GI/Abdominal exam: Present: soft, normal bowel sounds. Absent: distended, tenderness, guarding, rebound, rigid Extremities exam: Present: normal inspection, full ROM, normal capillary refill. Absent: tenderness, pedal edema, joint swelling, calf tenderness Back exam: Present: normal inspection Neurological exam: Present: alert, oriented X3, CN II-XII intact Psychiatric exam: Present: normal affect, normal mood Skin exam: Present: warm, dry, intact, normal color. Absent: rash <Patrick Beyer - Last Filed: 06/10/22 06:17> Course <Haley Francisco - Last Filed: 06/10/22 05:16> <Patrick Beyer - Last Filed: 06/10/22 06:17> Vital Signs 06/10/22 01:59 Temperature 97.9 F Pulse Rate 85 Respiratory 16 Rate Blood Pressure 149/80 O2 Sat by Pulse 98 Oximetry - Reevaluation(s) Reevaluation #1: 06/10/22 04:35 This patient's care was handed off to my attending, DR. Beyer. (Haley Francisco) Reevaluation #2: 06/10/22 06:16 Patient's has improved symptoms (Patrick Beyer) Reevaluation #3: 06/10/22 06:16 Patient informed results and questions answered (Patrick Beyer) Medical Decision Making - Lab Data Result diagrams: 06/10/22 04:30 06/10/22 04:30 <Haley Francisco - Last Filed: 06/10/22 05:16> - Lab Data Result diagrams: 06/10/22 04:30 06/10/22 04:30 <Patrick Beyer - Last Filed: 06/10/22 06:17> - Medical Decision Making 52 female DF for evaluation of chest pain which she believes maybe anxiety related. CT shows no change in aortic imaging. Patient has symptom improvement and can be discharged home (Patrick Beyer) - Lab Data Lab Results 06/10/22 06/10/22 06/10/22 Range/Units 04:30 04:30 04:30 WBC 9.0 (3.8-10.6) k/uL RBC 4.90 (3.80-5.40) m/uL Hgb 13.7 (11.4-16.0) gm/dL Hct 42.8 (34.0-46.0) % MCV 87.4 (80.0-100.0) fL MCH 27.9 (25.0-35.0) pg MCHC 32.0 (31.0-37.0) g/dL RDW 13.5 (11.5-15.5) % Plt Count 213 (150-450) k/uL MPV 8.6 Neutrophils % 77 % Lymphocytes % 17 % Monocytes % 3 % Eosinophils % 1 % Basophils % 1 % Neutrophils # 6.9 (1.3-7.7) k/uL Lymphocytes # 1.6 (1.0-4.8) k/uL Monocytes # 0.3 (0-1.0) k/uL Eosinophils # 0.1 (0-0.7) k/uL Basophils # 0.1 (0-0.2) k/uL PT 11.0 (9.0-12.0) sec INR 1.0 (<1.2) APTT 24.3 (22.0-30.0) sec D-Dimer 0.75 H (<0.60) mg/L FEU Sodium 139 (137-145) mmol/L Potassium 4.2 (3.5-5.1) mmol/L Chloride 103 (98-107) mmol/L Carbon Dioxide 26 (22-30) mmol/L Anion Gap 10 mmol/L BUN 12 (7-17) mg/dL Creatinine 0.91 (0.52-1.04) mg/dL Est GFR (CKD-EPI)AfAm 85 (>60 ml/min/1.73 sqM) Est GFR (CKD-EPI)NonAf 74 (>60 ml/min/1.73 sqM) Glucose 107 H (74-99) mg/dL Calcium 9.4 (8.4-10.2) mg/dL Magnesium 1.7 (1.6-2.3) mg/dL Total Bilirubin 0.4 (0.2-1.3) mg/dL AST 18 (14-36) U/L ALT 20 (4-34) U/L Alkaline Phosphatase 31 L (38-126) U/L Troponin I (0.000-0.034) ng/mL Total Protein 6.9 (6.3-8.2) g/dL Albumin 4.3 (3.5-5.0) g/dL 06/10/22 Range/Units 04:30 WBC (3.8-10.6) k/uL RBC (3.80-5.40) m/uL Hgb (11.4-16.0) gm/dL Hct (34.0-46.0) % MCV (80.0-100.0) fL MCH (25.0-35.0) pg MCHC (31.0-37.0) g/dL RDW (11.5-15.5) % Plt Count (150-450) k/uL MPV Neutrophils % % Lymphocytes % % Monocytes % % Eosinophils % % Basophils % % Neutrophils # (1.3-7.7) k/uL Lymphocytes # (1.0-4.8) k/uL Monocytes # (0-1.0) k/uL Eosinophils # (0-0.7) k/uL Basophils # (0-0.2) k/uL PT (9.0-12.0) sec INR (<1.2) APTT (22.0-30.0) sec D-Dimer (<0.60) mg/L FEU Sodium (137-145) mmol/L Potassium (3.5-5.1) mmol/L Chloride (98-107) mmol/L Carbon Dioxide (22-30) mmol/L Anion Gap mmol/L BUN (7-17) mg/dL Creatinine (0.52-1.04) mg/dL Est GFR (CKD-EPI)AfAm (>60 ml/min/1.73 sqM) Est GFR (CKD-EPI)NonAf (>60 ml/min/1.73 sqM) Glucose (74-99) mg/dL Calcium (8.4-10.2) mg/dL Magnesium (1.6-2.3) mg/dL Total Bilirubin (0.2-1.3) mg/dL AST (14-36) U/L ALT (4-34) U/L Alkaline Phosphatase (38-126) U/L Troponin I <0.012 (0.000-0.034) ng/mL Total Protein (6.3-8.2) g/dL Albumin (3.5-5.0) g/dL Disposition <Haley Francisco - Last Filed: 06/10/22 05:16> Is patient prescribed a controlled substance at d/c from ED?: No <Patrick Beyer - Last Filed: 06/10/22 06:17> Clinical Impression: Chest pain, Anxiety Disposition: HOME SELF-CARE Condition: Good Instructions (If sedation given, give patient instructions): Chest Pain (ED) Referrals: Dallin Wise DO [Primary Care Provider] - 1-2 days
[2022-06-10] MEDS ORDERED: MORPHINE SULFATE 4 MG/ML SYRINGE IVP STA (04:31)
[2022-06-10] MEDS ORDERED: LORazepam 2 MG/ML INJ IV STA (04:31)
[2022-06-10 05:01] LABS: Basophils # (A) 0.1 k/uL (0-0.2); Basophils % (A) 1 %; Eosinophils # (A) 0.1 k/uL (0-0.7); Eosinophils % (A) 1 %; HCT 42.8 % (34.0-46.0); HGB 13.7 gm/dL (11.4-16.0); Lymphocytes # (A) 1.6 k/uL (1.0-4.8); Lymphocytes % (A) 17 %; MCH 27.9 pg (25.0-35.0); MCV 87.4 fL (80.0-100.0); Mean Platelet Volume 8.6; Monocytes # (A) 0.3 k/uL (0-1.0); Monocytes % (A) 3 %; Neutrophils # (A) 6.9 k/uL (1.3-7.7); Neutrophils % (A) 77 %; Platelet Count 213 k/uL (150-450); RDW 13.5 % (11.5-15.5)
[2022-06-10 05:15] LABS: Albumin 4.3 g/dL (3.5-5.0); Calcium 9.4 mg/dL (8.4-10.2); Magnesium 1.7 mg/dL (1.6-2.3); Potassium 4.2 mmol/L (3.5-5.1); Total Bilirubin 0.4 mg/dL (0.2-1.3); Total Protein 6.9 g/dL (6.3-8.2)
[2022-06-10 05:17] LABS: Partial Thromboplastin Time 24.3 sec (22.0-30.0)
--- NOTE | 2022-06-10 05:34 | CT ---
EXAMINATION TYPE: CT angio thor/abd pel aorta DATE OF EXAM: 06/10/2022 COMPARISON: 04/30/2022 HISTORY: chst pain. hx of aortic dissection CT DLP: 1435.4 mGycm Automated exposure control for dose reduction was used. CONTRAST: Performed with IV Contrast, patient injected with 100 mL of Isovue 370. Images obtained from the thoracic inlet to the floor of the pelvis with and without the IV contrast. There are Three-D postprocessed images. The lungs are clear of infiltrate. No evidence of a pulmonary mass. Heart size is normal. No pericard ial effusion. There is no mediastinal adenopathy. There is previous surgery at the ascending aorta. N o mediastinal mass. There is normal contrast opacification of the pulmonary arteries. No filling defe ct Liver spleen and stomach pancreas gallbladder appear intact. The bile ducts are not dilated. There is no adrenal mass. Kidneys show satisfactory contrast opacification. There is no hydronephrosis. Urete rs are not dilated. The bladder distends smoothly. Uterus is anteverted. No pelvic mass. There is dissection of the lower thoracic aorta with extension into the level of the aorta below the renal arteries. There is arterial flow in the iliac and femoral arteries. No evidence of hemodynamic stenosis. There is arterial flow in the celiac artery and superior mesenteric artery. There is arteri al flow in both renal arteries. No evidence of any significant stenosis. IMPRESSION: Dissection of the upper abdominal aorta to a level below the origins of the renal arteries which appe ars not significantly different than last exam. There is deformity of the aortic arch and ascending a jhon consistent with previous surgery and repair. The aorta appears not significantly different than old exam. No evidence of pulmonary embolism. No evidence of any new dissection.
== END 2022-06-10 06:55 | disposition home or self-care (01) ==
LOC: EC 01:58
DX: R07.89 Other chest pain (principal); F41.9 Anxiety disorder, unspecified; I10 Essential (primary) hypertension; Z87.891 Personal history of nicotine dependence; Z91.030 Bee allergy status
CPT/HCPCS: 36415; 85379; 80053; 83735; 84484; 85025; 85610; 85730; 71275; 74174; 99285; 96360; Q9967

== ENCOUNTER → 2022-06-19 | Outpatient (CLI) | payer OTHER ==
--- NOTE | 2022-06-20 09:26 | XR ---
EXAMINATION TYPE: XR shoulder complete LT DATE OF EXAM: 06/19/2022 COMPARISON: NONE HISTORY: Pain TECHNIQUE: Three views are submitted. FINDINGS: The osseous structures are intact. There is no acute fracture or dislocation. There may be slight el evation slight elevation of the clavicle relative to the acromion. IMPRESSION: 1. There may be slight elevation of the clavicle relative to the acromion which can be associated wit h a AC joint separation. Recommend follow-up MRI.
--- NOTE | 2022-06-20 09:27 | XR ---
EXAMINATION TYPE: XR thoracic spine complete DATE OF EXAM: 06/19/2022 COMPARISON: NONE HISTORY: Pain TECHNIQUE: 3 views submitted FINDINGS: Alignment is anatomic. There is no compression deformities. Hypertrophic and degenerative change of the spine. Postsurgical change overlying the mediastinum. IMPRESSION: 1. Multilevel [id number] degenerative disc disease.
== END | disposition home or self-care (01) ==
LOC: RADXRYALE 16:28
PROVIDERS: ATTEND Family Medicine
DX: M51.34 Other intervertebral disc degeneration, thoracic region (principal); M25.512 Pain in left shoulder
CPT/HCPCS: 72072

== ENCOUNTER 2022-07-23 05:30 | Observation (INO) | payer OTHER ==
[2022-07-23 05:36] VITALS: RESP 18; TEMP 97.5
[2022-07-23] MEDS ORDERED: ASPIRIN 81 MG PO STA (05:51)
[2022-07-23] MEDS ORDERED: NITROGLYCERIN SL TABS 0.4 MG TAB SUBLINGUAL STA (05:54)
--- NOTE | 2022-07-23 05:54 | ED ---
General Adult HPI - General Chief complaint: Chest Pain Stated complaint: Chest Pain Time Seen by Provider: 07/23/22 05:38 Source: patient Mode of arrival: wheelchair Limitations: no limitations - History of Present Illness Initial comments: Dictation was produced using [employer] dictation software. please excuse any grammatical, word or spelling errors. Chief Complaint: 52 Year old female presents emergency department for chest pain History of Present Illness: She is a 52-year-old female presents emergency department for chest pain. Patient states that it's like a dull pressure to the left anterior chest. States that when it first came on he was running down both extremities upper showing feels like it's rating to her left shoulder. Denies any associated diaphoresis or nausea. 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 She survive the event. Patient had a aortic procedure and coronary artery bypass grafting to treat a dissection. Patient denies any other known history of cardiac disease. Patient states that her pain is a 4 out of 10. The ROS documented in this emergency department record has been reviewed and confirmed by me. Those systems with pertinent positive or negative responses have been documented in the HPI. All other systems are other negative and/or noncontributory. PHYSICAL EXAM: General Impression: Alert and oriented x3, not in acute distress HEENT: Normocephalic atraumatic, extra-ocular movements intact, pupils equal and reactive to light bilaterally, mucous membranes moist. Cardiovascular: Heart regular rate and rhythm Chest: Able to complete full sentences, no retractions, no tachypnea Abdomen: abdomen soft, non-tender, non-distended, no organomegaly Musculoskeletal: Pulses present and equal in all extremities, no peripheral edema Motor: no focal deficits noted Neurological: CN II-XII grossly intact, no focal motor or sensory deficits noted Skin: Intact with no visualized rashes Psych: Normal affect and mood ED course: 52-year-old female presents emergency department for chest pain. Her symptoms are atypical with typical features. Vital signs upon arrival are within acceptable limits. EKG does not show any signs of ischemia or infarction. Laboratory evaluation obtained. CBC, coag panel, metabolic panel is unremarkable. Troponin is negative. Chest x-ray is nonacute. Patient given an aspirin. Patient reevaluated at bedside 720 and found to be stable medical condition. Patient does continue to report some symptoms. at this point it is unclear what is causing patient's symptoms. EKG interpretation: Ventricular rate 77, sinus rhythm, DE interval 167, QTc 45. No DE prolongation, no QTC prolongation, no ST or T-wave changes noted. EKG compared to 04/29/2022 showing no changes. Overall, this EKG is unremarkable - Related Data Home Medications Medication Instructions Recorded Confirmed Aspirin EC [Ecotrin Low Dose] 81 mg PO DAILY 10/20/21 10/20/21 Atorvastatin [Lipitor] 80 mg PO HS 10/20/21 10/20/21 Guaifenesin/Dextromethorphan 1 tab PO Q6H PRN 10/20/21 10/20/21 [Coricidin Hbp Chest Kayode-Cough] carvediloL [Coreg] 25 mg PO BID 10/20/21 10/20/21 Previous Rx's Medication Instructions Recorded Acetaminophen Tab [Tylenol] 650 mg PO Q6HR PRN #30 tab 10/21/21 Allergies Allergy/AdvReac Type Severity Reaction Status Date / Time bee venom protein (honey bee) Allergy Swelling Verified 07/23/22 05:36 Review of Systems ROS Statement: Those systems with pertinent positive or pertinent negative responses have been documented in the HPI. ROS Other: All systems not noted in ROS Statement are negative. Past Medical History Past Medical History: Hypertension Additional Past Medical History / Comment(s): Aortic Aneurysm dissection in 2019 History of Any Multi-Drug Resistant Organisms: ESBL Date of last positivie culture/infection: 06/11/22 ESBL E.coli MDRO Source:: Urine Past Surgical History: Coronary Bypass/CABG, Tubal Ligation Additional Past Surgical History / Comment(s): eye surgery, double bypass 2019, aortic dissection surgery 2019 Past Psychological History: No Psychological Hx Reported Smoking Status: Former smoker Past Alcohol Use History: None Reported Past Drug Use History: None Reported General Exam Limitations: no limitations Course Vital Signs 07/23/22 07/23/22 07/23/22 05:34 05:57 06:05 Temperature 97.5 F L Pulse Rate 74 80 Pulse Rate [ 74 [employer] Estate [employer] ] Respiratory 18 Rate Blood Pressure 173/96 150/83 O2 Sat by Pulse 99 Oximetry 07/23/22 06:10 Temperature Pulse Rate 80 Pulse Rate [ [employer] Estate Transaction Manager ] Respiratory Rate Blood Pressure 127/88 O2 Sat by Pulse Oximetry Medical Decision Making - Lab Data Result diagrams: 07/23/22 06:14 07/23/22 06:14 Lab Results 07/23/22 07/23/22 07/23/22 Range/Units 06:14 06:14 06:14 WBC 6.5 (3.8-10.6) k/uL RBC 4.78 (3.80-5.40) m/uL Hgb 14.0 (11.4-16.0) gm/dL Hct 41.0 (34.0-46.0) % MCV 85.8 (80.0-100.0) fL MCH 29.3 (25.0-35.0) pg MCHC 34.1 (31.0-37.0) g/dL RDW 12.8 (11.5-15.5) % Plt Count 212 (150-450) k/uL MPV 9.1 Neutrophils % 65 % Lymphocytes % 25 % Monocytes % 5 % Eosinophils % 3 % Basophils % 1 % Neutrophils # 4.3 (1.3-7.7) k/uL Lymphocytes # 1.6 (1.0-4.8) k/uL Monocytes # 0.3 (0-1.0) k/uL Eosinophils # 0.2 (0-0.7) k/uL Basophils # 0.1 (0-0.2) k/uL PT 10.9 (9.0-12.0) sec INR 1.0 (<1.2) APTT 24.7 (22.0-30.0) sec Sodium 141 (137-145) mmol/L Potassium 4.2 (3.5-5.1) mmol/L Chloride 106 (98-107) mmol/L Carbon Dioxide 23 (22-30) mmol/L Anion Gap 12 mmol/L BUN 14 (7-17) mg/dL Creatinine 0.85 (0.52-1.04) mg/dL Est GFR (CKD-EPI)AfAm >90 (>60 ml/min/1.73 sqM) Est GFR (CKD-EPI)NonAf 80 (>60 ml/min/1.73 sqM) Glucose 122 H (74-99) mg/dL Calcium 9.4 (8.4-10.2) mg/dL Magnesium 1.7 (1.6-2.3) mg/dL Total Bilirubin 0.5 (0.2-1.3) mg/dL AST 17 (14-36) U/L ALT 22 (4-34) U/L Alkaline Phosphatase 30 L (38-126) U/L Troponin I (0.000-0.034) ng/mL Total Protein 6.6 (6.3-8.2) g/dL Albumin 4.2 (3.5-5.0) g/dL 07/23/22 Range/Units 06:14 WBC (3.8-10.6) k/uL RBC (3.80-5.40) m/uL Hgb (11.4-16.0) gm/dL Hct (34.0-46.0) % MCV (80.0-100.0) fL MCH (25.0-35.0) pg MCHC (31.0-37.0) g/dL RDW (11.5-15.5) % Plt Count (150-450) k/uL MPV Neutrophils % % Lymphocytes % % Monocytes % % Eosinophils % % Basophils % % Neutrophils # (1.3-7.7) k/uL Lymphocytes # (1.0-4.8) k/uL Monocytes # (0-1.0) k/uL Eosinophils # (0-0.7) k/uL Basophils # (0-0.2) k/uL PT (9.0-12.0) sec INR (<1.2) APTT (22.0-30.0) sec Sodium (137-145) mmol/L Potassium (3.5-5.1) mmol/L Chloride (98-107) mmol/L Carbon Dioxide (22-30) mmol/L Anion Gap mmol/L BUN (7-17) mg/dL Creatinine (0.52-1.04) mg/dL Est GFR (CKD-EPI)AfAm (>60 ml/min/1.73 sqM) Est GFR (CKD-EPI)NonAf (>60 ml/min/1.73 sqM) Glucose (74-99) mg/dL Calcium (8.4-10.2) mg/dL Magnesium (1.6-2.3) mg/dL Total Bilirubin (0.2-1.3) mg/dL AST (14-36) U/L ALT (4-34) U/L Alkaline Phosphatase (38-126) U/L Troponin I <0.012 (0.000-0.034) ng/mL Total Protein (6.3-8.2) g/dL Albumin (3.5-5.0) g/dL Disposition Clinical Impression: Chest pain Disposition: ADMITTED IP TO THIS HOSP Condition: Fair Referrals: Dallin Wise DO [Primary Care Provider] - 1-2 days Decision Time: 07:22
[2022-07-23 06:22] LABS: Basophils # (A) 0.1 k/uL (0-0.2); Basophils % (A) 1 %; Eosinophils # (A) 0.2 k/uL (0-0.7); Eosinophils % (A) 3 %; Lymphocytes # (A) 1.6 k/uL (1.0-4.8); Lymphocytes % (A) 25 %; MCH 29.3 pg (25.0-35.0); MCHC 34.1 g/dL (31.0-37.0); MCV 85.8 fL (80.0-100.0); Mean Platelet Volume 9.1; Monocytes # (A) 0.3 k/uL (0-1.0); Monocytes % (A) 5 %; Neutrophils # (A) 4.3 k/uL (1.3-7.7); Neutrophils % (A) 65 %; Platelet Count 212 k/uL (150-450); RBC 4.78 m/uL (3.80-5.40); RDW 12.8 % (11.5-15.5); WBC 6.5 k/uL (3.8-10.6)
[2022-07-23 06:31] LABS: Partial Thromboplastin Time 24.7 sec (22.0-30.0); Prothrombin Time 10.9 sec (9.0-12.0)
[2022-07-23 06:33] LABS: ALT 22 U/L (4-34); AST 17 U/L (14-36); African American GFR (CKD) >90 (>60 ml/min/1.73 sqM); Albumin 4.2 g/dL (3.5-5.0); Alkaline Phosphatase 30 U/L (38-126); Anion Gap 12 mmol/L; Blood Urea Nitrogen 14 mg/dL (7-17); Calcium 9.4 mg/dL (8.4-10.2); Carbon Dioxide 23 mmol/L (22-30); Chloride 106 mmol/L (98-107); Glucose 122 mg/dL (74-99); Magnesium 1.7 mg/dL (1.6-2.3); Non-African American GFR(CKD) 80 (>60 ml/min/1.73 sqM); Potassium 4.2 mmol/L (3.5-5.1); Sodium 141 mmol/L (137-145); Total Bilirubin 0.5 mg/dL (0.2-1.3); Total Protein 6.6 g/dL (6.3-8.2)
--- NOTE | 2022-07-23 06:39 | XR ---
EXAMINATION TYPE: XR chest 2V DATE OF EXAM: 07/23/2022 COMPARISON: Chest x-ray April 29, 2022 HISTORY: Chest pain. History of aortic dissection. TECHNIQUE: Frontal and lateral views of the chest are obtained. FINDINGS: Overlying sternal wires are redemonstrated. There is no suspicious new focal air space opa city, pleural effusion, or pneumothorax seen. The cardiac silhouette size is stable and within chu l limits. The osseous structures are intact. IMPRESSION: No acute process. No significant change from prior.
[2022-07-23] MEDS ORDERED: NITROGLYCERIN SL TABS 0.4 MG TAB SUBLINGUAL PRN (07:23)
[2022-07-23] MEDS ORDERED: ALPRAZolam 0.25 MG TAB PO PRN (08:12)
[2022-07-23] MEDS ORDERED: HYDROcodone/APAP 5-325MG 1 EACH TAB PO PRN (08:13)
[2022-07-23] MEDS ORDERED: NALOXONE 0.4 MG/ML 1 ML VIAL IVP PRN (08:13)
[2022-07-23] MEDS ORDERED: AMINOPHYLLINE 500 MG/20 ML VIAL IV PRN (08:25)
[2022-07-23] MEDS ORDERED: CAFFEINE CITRATE 60 MG/3 ML VIAL IV PRN (08:25)
[2022-07-23] MEDS ORDERED: REGADENOSON 0.4 MG/5 ML SYRINGE IV PRN (08:25)
--- NOTE | 2022-07-23 08:41 | P.CRDCN ---
History of Present Illness History of present illness: This is a pleasant 52-year-old female past medical history significant for aortic dissection type A status post repair in May 03, 2020, coronary artery disease s/p 2 vessel CABG on May 03, 2020, hypertension, dyslipidemia, former tobacco use. She follows in the office with Dr. Small at [facility], last seen in December 2021, currently following up yearly. We have been asked to see in consultation for chest pain. Patient presents to the ER with complaints of chest discomfort that woke her up from a sleep. She states she had discomfort across her chest, with radiation to her back, bilateral shoulders and arms. It lasted less than 30 minutes. No specific aggravating or alleviating factors. She had associated nausea. No shortness of breath or vomiting. She denies any diaphores is, palpitations, lightheadedness, dizziness, syncope or near syncope. She is not very active physically, however, with activity she has no discomfort in her chest or shortness of breath. She denies any symptoms of orthopne or PND. Denies any fever, cough, chills, bleeding. She denies and history of [place], Stroke, Diabetes. She is a former smoker, quit after her surgery. DIAGNOSTICS * EKG reveals sinus rhythm, heart rate 77, nonspecific STT wave abnormality, T wave inversion in I, aVL. Prior EKG with similar findings * Chest xray no acute cardiopulmonary process. * Laboratory reviewed, CBC unremarkable, sodium 141, potassium 4.2, BUN 14, serum creatinine 0.85, magnesium 1.7, troponin negative 1 * Current home medications include carvedilol 25 mg twice a day, atorvastatin 80 mg nightly, aspirin 81 mg daily, Losartan 25mg daily, Baclofen, Vitamin D, potassium REVIEW OF SYSTEMS CONSTITUTIONAL: Denies fever or chills. CARDIOVASCULAR: + chest pain, Denies shortness of breath, orthopnea, PND or palpitations. RESPIRATORY: Denies cough. GASTROINTESTINAL: Denies abdominal pain, diarrhea, constipation, +nausea Denies vomiting. MUSCULOSKELETAL: Denies myalgias. NEUROLOGIC: Denies numbness, tingling, headache or weakness. ENDOCRINE: Denies fatigue, weight change, polydipsia or polyurina. GENITOURINARY: Denies burning, hematuria or urgency with micturation. HEMATOLOGIC: Denies history of anemia or bleeding. PHYSICAL EXAMINATION Blood pressure 141/80, heart rate 80, afebrile, saturations greater than 92% on room air CONSTITUTIONAL: No apparent distress. HEENT: Head is normocephalic. Pupils are equal, round. Sclerae anicteric. Mucous membranes of the mouth are moist. No JVD. CHEST EXAMINATION: Lungs are clear to auscultation. No chest wall tenderness is noted on palpation or with deep breathing. HEART EXAMINATION: Regular rate and rhythm. S1, S2 heard. Systolic ejection mur mur noted. ABDOMEN: Soft, nontender. Positive bowel sounds. EXTREMITIES: 2+ peripheral pulses, no lower extremity edema and no calf tenderness. SKIN: warm, dry NEUROLOGIC EXAMINATION: Patient is awake, alert and oriented x3. ASSESSMENT Chest pain, acute coronary syndrome has been ruled out. Aortic dissection type A status post repair in May 03, 2020 Coronary artery disease with history of 2 vessel CABG on May 03, 2020 History of Hypertension Dyslipidemia PLAN An acute coronary event has been ruled out with no EKG evidence of ischemia and negative cardiac enzymes. Continue home cardiac medications Perform Lexiscan stress test Obtain 2D echocardiogram If stress test negative for reversible ischemia, no further inpatient workup from a cardiology perspective Thank you kindly for this consultation. Nurse Practitioner note has been reviewed, I agree with a documented findings and plan of care. Patient was seen and examined. Past Medical History Past Medical History: Hypertension Additional Past Medical History / Comment(s): Aortic Aneurysm dissection in 2019 History of Any Multi-Drug Resistant Organisms: ESBL Date of last positivie culture/infection: 06/11/22 ESBL E.coli MDRO Source:: Urine Past Surgical History: Coronary Bypass/CABG, Tubal Ligation Additional Past Surgical History / Comment(s): eye surgery, double bypass 2019, aortic dissection surgery 2019 Past Psychological History: No Psychological Hx Reported Smoking Status: Former smoker Past Alcohol Use History: None Reported Past Drug Use History: None Reported Medications and Allergies Home Medications Medication Instructions Recorded Confirmed Type Aspirin EC [Ecotrin Low Dose] 81 mg PO DAILY 10/20/21 07/23/22 History Atorvastatin [Lipitor] 80 mg PO HS 10/20/21 07/23/22 History carvediloL [Coreg] 25 mg PO BID 10/20/21 07/23/22 History ALPRAZolam [Xanax] 0.25 mg PO DAILY PRN 07/23/22 07/23/22 History Baclofen [Lioresal] 20 mg PO TID 07/23/22 07/23/22 History Cholecalciferol (Vitamin D3) 75 mcg PO DAILY 07/23/22 07/23/22 History [Vitamin D3 (3000 Iu)] Losartan [Cozaar] 25 mg PO DAILY 07/23/22 07/23/22 History Nitroglycerin Sl Tabs [Nitrostat] 0.4 mg SUBLINGUAL Q5M PRN 07/23/22 07/23/22 History Potassium Gluconate [Potassium 99 mg PO DAILY 07/23/22 07/23/22 History Gluconate ER] carvediloL [Coreg] 25 mg PO BID 07/23/22 07/23/22 History Allergies Allergy/AdvReac Type Severity Reaction Status Date / Time bee venom protein (honey bee) Allergy Swelling Verified 07/23/22 07:51 Physical Exam Vitals: Vital Signs Temp Pulse Pulse Resp BP Pulse Ox 07/23/22 06:10 80 127/88 07/23/22 06:05 80 150/83 07/23/22 05:57 74 07/23/22 05:34 97.5 F L 74 18 173/96 99 Intake and Output 07/22/22 07/23/22 07/23/22 22:59 06:59 14:59 Other: Weight 77.111 kg Results 07/23/22 06:14 07/23/22 06:14 Cardiac Enzymes 07/23/22 07/23/22 Range/Units 06:14 06:14 AST 17 (14-36) U/L Troponin I <0.012 (0.000-0.034) ng/mL Coagulation 07/23/22 Range/Units 06:14 PT 10.9 (9.0-12.0) sec APTT 24.7 (22.0-30.0) sec CBC 07/23/22 Range/Units 06:14 WBC 6.5 (3.8-10.6) k/uL RBC 4.78 (3.80-5.40) m/uL Hgb 14.0 (11.4-16.0) gm/dL Hct 41.0 (34.0-46.0) % Plt Count 212 (150-450) k/uL Comprehensive Metabolic Panel 07/23/22 Range/Units 06:14 Sodium 141 (137-145) mmol/L Potassium 4.2 (3.5-5.1) mmol/L Chloride 106 (98-107) mmol/L Carbon Dioxide 23 (22-30) mmol/L BUN 14 (7-17) mg/dL Creatinine 0.85 (0.52-1.04) mg/dL Glucose 122 H (74-99) mg/dL Calcium 9.4 (8.4-10.2) mg/dL AST 17 (14-36) U/L ALT 22 (4-34) U/L Alkaline Phosphatase 30 L (38-126) U/L Total Protein 6.6 (6.3-8.2) g/dL Albumin 4.2 (3.5-5.0) g/dL Current Medications Generic Name Dose Route Start Last Admin Trade Name Freq PRN Reason Stop Dose Admin Aspirin 325 mg 07/24/22 09:00 Aspirin 325 Mg Tab PO DAILY JOHN Nitroglycerin 0.4 mg 07/23/22 07:23 Nitroglycerin Sl Tabs 0.4 Mg Tab SUBLINGUAL Q5M PRN Chest Pain Intake and Output 07/22/22 07/23/22 07/23/22 22:59 06:59 14:59 Other: Weight 77.111 kg 07/23/22 06:14 07/23/22 06:14
[2022-07-23] MEDS ORDERED: LOSARTAN 25 MG TAB PO SCH (09:00)
[2022-07-23] MEDS ORDERED: NON FORMULARY DRUG (Carvedilol [Coreg] 25 MG Tablet) PO SCH (09:00)
--- NOTE | 2022-07-23 11:52 | NM ---
EXAMINATION TYPE: NM stress lexiscan cardiolite DATE OF EXAM: 07/23/2022 COMPARISON: NONE HISTORY: Chest pain TECHNIQUE: After the intravenous administration of 10.3 mCi Tc 99m Sestamibi - Cardiolite resting SP ECT images acquired 65 minutes post injection. The patient received 0.4mg Lexiscan, 24.6 mCi Tc 99m Sestamibi - Stress images obtained [address] injection FINDINGS: Review of stress and rest SPECT images demonstrates no distinct perfusion abnormality. Gated analysi s shows normal wall motion with an estimated left ventricular ejection fraction of 72 %. IMPRESSION: No scintigraphic evidence for reversible ischemia.
--- NOTE | 2022-07-23 12:55 | CA ---
Transthoracic Echo Report Name: Ailin Atkinson Age: 52 Gender: F : 1970 Exam Date: 07/23/2022 10:56 Exam Location: [facility] Ht (in): 61 Wt (lb): 170 Ordering Physician: Tabatha Bobo Attending/Referring Phys: Power Hammer Operator Stacey Miller, CELESTE Procedure CPT: Indications: chest pain, hx CABG and aortic dissection Cardiac Hx: Technical Quality: Good Contrast 1: Total Dose (mL): Contrast 2: Total Dose (mL): MEASUREMENTS (Male / Female) Normal Values 2D ECHO LV Diastolic Diameter PLAX 4.2 cm 4.2 - 5.9 / 3.9 - 5.3 cm LV Systolic Diameter PLAX 2.8 cm IVS Diastolic Thickness 1.2 cm 0.6 - 1.0 / 0.6 - 0.9 cm LVPW Diastolic Thickness 1.1 cm 0.6 - 1.0 / 0.6 - 0.9 cm LV Relative Wall Thickness 0.5 RV Internal Dim ED PLAX 2.5 cm LA Systolic Diameter LX 3.5 cm 3.0 - 4.0 / 2.7 - 3.8 cm LA Volume 38.2 cm??? 18 - 58 / 22 - 52 cm??? M-MODE Aortic Root Diameter MM 3.0 cm MV E Point Septal Separation 0.7 cm AV Cusp Separation MM 2.1 cm DOPPLER AV Peak Velocity 117.6 cm/s AV Peak Gradient 5.5 mmHg MV Area PHT 3.7 cm??? Mitral E Point Velocity 81.0 cm/s Mitral A Point Velocity 85.0 cm/s Mitral E to A Ratio 1.0 MV Deceleration Time 202.6 ms MV E' Velocity 6.8 cm/s Mitral E to MV E' Ratio 11.9 TR Peak Velocity 251.1 cm/s TR Peak Gradient 25.2 mmHg Right Ventricular Systolic Press 29.8 mmHg FINDINGS Left Ventricle Left ventricular ejection fraction is estimated at 55-60 %. Left ventricular cavity size normal. Borderline left ventricular hypertrophy.left ventricular cavity size normal. Right Ventricle Normal right ventricular size and function. Right ventricular systolic pressure within normal limits. Right Atrium Normal right atrial size. Left Atrium Normal left atrial size. No evidence for an atrial septal defect. Mitral Valve Structurally normal mitral valve. No mitral stenosis.mild mitral regurgitation. Aortic Valve Trileaflet aortic valve. No aortic valve stenosis or regurgitation. Tricuspid Valve Structurally normal tricuspid valve. mild tricuspid regurgitation. Pulmonic Valve Trace pulmonic regurgitation. Pericardium Normal pericardium. No pericardial effusion. Aorta Normal size aortic root and proximal ascending aorta. CONCLUSIONS 1. Normal left ventricle size and systolic function 2. Mild mitral and tricuspid regurgitation 3. No pericardial effusion. Previewed by: Dr. Kelli Kinsey MD (Electronically Signed) Final Date: 23 July 2022 12:54
--- NOTE | 2022-07-23 14:20 | P.DS ---
Providers Date of admission: 07/23/22 07:23 Expected date of discharge: 07/23/22 Attending physician: Arti Early DO Consults: 07/23/22 07:23 Consult Physician Urgent Consulting Provider: Puma Lane Consult Reason/Comments: chest pain Do you want consulting provider notified?: Yes Primary care physician: [facility] Course: Discharge Diagnosis: Chest pain, acute coronary event ruled out History of aortic dissection status post repair April 2020 History of coronary artery disease status post CABG 2 Hypertension Hyperlipidemia Hospital Course: Patient is a very pleasant 52-year-old female with a past medical history of aortic dissection status post repair April 2020, coronary artery disease status post CABG 2, hypertension, and hyperlipidemia. She presented to the emergency department with a chief complaint of chest pain. Patient reports being awoken from sleep with pain/discomfort to midsternal chest radiating into her back and up into her shoulders. Patient describes this pain as a warm/tingling feeling and just a feeling of discomfort. She denied having any headache, lightheadedness, dizziness, palpitations, shortness of breath, abdominal pain, nausea, vomiting, or experiencing any numbness/weakness/swelling in her extremities. She underwent full evaluation in the emergency department. CBC, coags, and CMP were unremarkable. Troponin less than 0.012. EKG showing normal sinus rhythm at 77 bpm with no noted T wave or ST abnormality showing no signs of acute ischemia. Chest x-ray negative for acute cardiopulmonary process. Patient was admitted under our services with consultation to cardiology. Upon time of admission patient reports previously reported chest pain/discomfort had subsided. Troponins were trended and negative at less than 0.0122 draws. Lexiscan stress test completed showing no scintigraphic evidence for reversible ischemia. Echocardiogram revealing normal EF of 55-60% with mild mitral and tricuspid regurgitation. Acute coronary event has been ruled out. Patient is medically stable for discharge at this time and recommended to follow up outpatient with her cuprous chloride operator Dr. Small within the next 1-2 weeks. Physical examination: Patient seen and examined at bedside. Vital signs reviewed and stable. General: Nontoxic, no distress and appears stated age. Derm: Skin warm and dry, normal coloration for ethnicity. Head: Atraumatic, normocephalic and symmetric. Eyes: EOMs intact, no lid lag, and anicteric sclera Mouth: no lip lesions, mucus membranes moist Cardiovascular: regular rate and rhythm with normal S1S2, no murmur, positive posterior tibial pulses bilaterally, and cap refill < 2 seconds. Lungs: Respirations even, regular, and unlabored on room air. Lungs CTA bilaterally, no rhonchi, no rales, no wheezing, and no accessory muscle usage. Abdominal: soft, nontender to palpation, no guarding, no appreciable organomegaly Ext: ROM intact. No gross muscle atrophy, no edema, no contractures Neuro: Speech clear, face symmetrical and CN II-XII grossly intact with no noted focal neuro deficits Psych: Alert and oriented to person, place, time, and situation. Appropriate and pleasant affect. A total of 33 minutes of time were spent preparing this complex discharge summary. Pt was discharged on 07/23/22 at 2:12 PM. Odilon Richter NP rendered care for this patient independently, reviewed the findings and plan as documented in the note above. I did not physically speak with or examine the patient on this date. Patient Condition at Discharge: Stable Plan - Discharge Summary Discharge Rx Participant: No New Discharge Prescriptions: Continue carvediloL [Coreg] 25 mg PO BID ALPRAZolam [Xanax] 0.25 mg PO DAILY PRN PRN Reason: Anxiety Potassium Gluconate [Potassium Gluconate ER] 99 mg PO DAILY carvediloL [Coreg] 25 mg PO BID Atorvastatin [Lipitor] 80 mg PO HS Aspirin EC [Ecotrin Low Dose] 81 mg PO DAILY Cholecalciferol (Vitamin D3) [Vitamin D3 (3000 Iu)] 75 mcg PO DAILY Nitroglycerin Sl Tabs [Nitrostat] 0.4 mg SUBLINGUAL Q5M PRN PRN Reason: Chest Pain Losartan [Cozaar] 25 mg PO DAILY Baclofen [Lioresal] 20 mg PO TID Discharge Medication List Aspirin EC [Ecotrin Low Dose] 81 mg PO DAILY 10/20/21 [History] Atorvastatin [Lipitor] 80 mg PO HS 10/20/21 [History] carvediloL [Coreg] 25 mg PO BID 10/20/21 [History] ALPRAZolam [Xanax] 0.25 mg PO DAILY PRN 07/23/22 [History] Baclofen [Lioresal] 20 mg PO TID 07/23/22 [History] Cholecalciferol (Vitamin D3) [Vitamin D3 (3000 Iu)] 75 mcg PO DAILY 07/23/22 [History] Losartan [Cozaar] 25 mg PO DAILY 07/23/22 [History] Nitroglycerin Sl Tabs [Nitrostat] 0.4 mg SUBLINGUAL Q5M PRN 07/23/22 [History] Potassium Gluconate [Potassium Gluconate ER] 99 mg PO DAILY 07/23/22 [History] carvediloL [Coreg] 25 mg PO BID 07/23/22 [History] Follow up Appointment(s)/Referral(s): Dallin Wise DO [Primary Care Provider] - 1-2 days Patient Instructions/Handouts: Chest Pain (DC) Activity/Diet/Wound Care/Special Instructions: Activity: As tolerated. Take breaks as needed. Diet: Heart healthy and carb consistent diet. Avoid salts, or foods with hidden salts such as canned or boxed foods and frozen dinners. Extra salt makes your heart work harder and traps the fluid in your body for longer. Special Instructions: Take all of your medications as directed and remember to keep all of your doctor's appointments and follow-up as needed. It is important to follow-up with her cuprous chloride operator, Dr. Small within 1-2 weeks. Thank you for allowing us to participate in your care, it was truly a pleasure having you for our patient!!! Discharge Disposition: HOME SELF-CARE
--- NOTE | 2022-07-23 14:21 | P.HPIM ---
History of Present Illness H&P Date: 07/23/22 History of Presenting Illness: Patient is a very pleasant 52-year-old female with a past medical history of aortic dissection status post repair April 2020, coronary artery disease status post CABG 2, hypertension, and hyperlipidemia. She presented to the emergency department with a chief complaint of chest pain. Patient reports being awoken from sleep with pain/discomfort to midsternal chest radiating into her back and up into her shoulders. Patient describes this pain as a warm/tingling feeling and just a feeling of discomfort. She denied having any headache, lighthe adedness, dizziness, palpitations, shortness of breath, abdominal pain, nausea, vomiting, or experiencing any numbness/weakness/swelling in her extremities. She underwent full evaluation in the emergency department. CBC, coags, and CMP were unremarkable. Troponin less than 0.012. EKG showing normal sinus rhythm at 77 bpm with no noted T wave or ST abnormality showing no signs of acute ischemia. Chest x-ray negative for acute cardiopulmonary process. Patient was admitted under our services with consultation to cardiology. Review of systems: Pertinent positives and negatives as discussed in HPI, a complete review of systems was performed and all other systems are negative. Physical exam: Vital signs reviewed and stable. General: Nontoxic, no distress and appears stated age. Derm: Skin warm and dry, normal coloration for ethnicity. Head: Atraumatic, normocephalic and symmetric. Eyes: EOMs intact, no lid lag, and anicteric sclera Mouth: no lip lesions, mucus membranes moist Cardiovascular: regular rate and rhythm with normal S1S2, no murmur, positive posterior tibial pulses bilaterally, and cap refill < 2 seconds. Lungs: Respirations even, regular, and unlabored on room air. Lungs CTA bilaterally, no rhonchi, no rales, no wheezing, and no accessory muscle usage. Abdominal: soft, nontender to palpation, no guarding, no appreciable organomegaly Ext: ROM intact. No gross muscle atrophy, no edema, no contractures Neuro: Speech clear, face symmetrical and CN II-XII grossly intact with no noted focal neuro deficits Psych: Alert and oriented to person, place, time, and situation. Appropriate and pleasant affect. Assessment and Plan of Care: Chest pain, rule out acute coronary event History of aortic dissection status post repair April 2020 Coronary artery disease status post CABG 2 Hypertension Hyperlipidemia -Cardiology consult, appreciate further recommendations -Telemetry monitoring -Trend troponins -Cardiac diet, NPO at midnight -Continue cardiac medication regimen with Aspirin, atorvastatin, losartan and carvedilol -Lipid profile with a.m. labs. -Echocardiogram The patient is admitted with an anticipated less than 2 midnight stay for evaluation of chest pain. CODE STATUS: Full code DVT prophylaxis: Heparin Discussed with: Patient and RN Anticipated discharge date: 1-[address]: Home A total of 44 minutes was spent on the care of this complex patient more than 50% of the time was spent in counseling and care coordination. Past Medical History Past Medical History: Hypertension Additional Past Medical History / Comment(s): Aortic Aneurysm dissection in 2019 History of Any Multi-Drug Resistant Organisms: ESBL Date of last positivie culture/infection: 06/11/22 ESBL E.coli MDRO Source:: Urine Past Surgical History: Coronary Bypass/CABG, Tubal Ligation Additional Past Surgical History / Comment(s): eye surgery, double bypass 2019, aortic dissection surgery 2019 Past Psychological History: No Psychological Hx Reported Smoking Status: Former smoker Past Alcohol Use History: None Reported Past Drug Use History: None Reported - Past Family History Mother Family Medical History: Cancer Additional Family Medical History / Comment(s): mom is currently age 69. Had history of breast cancer with radiation and chemo. Father Family Medical History: Cancer Additional Family Medical History / Comment(s): at age 41 of brain cancer. Medications and Allergies Home Medications Medication Instructions Recorded Confirmed Type Aspirin EC [Ecotrin Low Dose] 81 mg PO DAILY 10/20/21 07/23/22 History Atorvastatin [Lipitor] 80 mg PO HS 10/20/21 07/23/22 History carvediloL [Coreg] 25 mg PO BID 10/20/21 07/23/22 History ALPRAZolam [Xanax] 0.25 mg PO DAILY PRN 07/23/22 07/23/22 History Baclofen [Lioresal] 20 mg PO TID 07/23/22 07/23/22 History Cholecalciferol (Vitamin D3) 75 mcg PO DAILY 07/23/22 07/23/22 History [Vitamin D3 (3000 Iu)] Losartan [Cozaar] 25 mg PO DAILY 07/23/22 07/23/22 History Nitroglycerin Sl Tabs [Nitrostat] 0.4 mg SUBLINGUAL Q5M PRN 07/23/22 07/23/22 History Potassium Gluconate [Potassium 99 mg PO DAILY 07/23/22 07/23/22 History Gluconate ER] carvediloL [Coreg] 25 mg PO BID 07/23/22 07/23/22 History Allergies Allergy/AdvReac Type Severity Reaction Status Date / Time bee venom protein (honey bee) Allergy Swelling Verified 07/23/22 07:51 Physical Exam Vitals: Vital Signs Temp Pulse Pulse Resp BP Pulse Ox 07/23/22 07:52 70 18 143/74 98 07/23/22 06:10 80 127/88 07/23/22 06:05 80 150/83 07/23/22 05:57 74 07/23/22 05:34 97.5 F L 74 18 173/96 99 Intake and Output 07/22/22 07/23/22 07/23/22 22:59 06:59 14:59 Other: Weight 77.111 kg Results CBC & Chem 7: 07/23/22 06:14 07/23/22 06:14 Labs: Abnormal Lab Results - Last 24 Hours (Table) 07/23/22 Range/Units 06:14 Glucose 122 H (74-99) mg/dL Alkaline Phosphatase 30 L (38-126) U/L
[2022-07-23 14:52] VITALS: BP 145/79; PULSE 68
[2022-07-23] MEDS ORDERED: ATORVASTATIN 80 MG TAB PO SCH (21:00)
[2022-07-23] MEDS ORDERED: carvediloL 12.5 MG TAB PO SCH (21:00)
[2022-07-24] MEDS ORDERED: ASPIRIN 81 MG PO SCH (09:00)
[2022-07-24] MEDS ORDERED: LOSARTAN 25 MG TAB PO SCH (09:00)
[2022-07-24] MEDS ORDERED: ASPIRIN 325 MG TAB PO SCH (09:00)
--- NOTE | 2022-07-24 14:48 | CA ---
Lexiscan Nuclear Stress Test Report Name: Ailin Atkinson Exam Date: 07/23/2022 10:45 Exam Location: [facility] Ht (in): 61 Wt (lb): 170 BSA: 1.76 Ordering Phys: BAKARI Referring Phys: BAKARI,, Technologist: Benedicto Santamaria Age: 52 Gender: F : 1970 Procedure CPT: Indications: ICD-10 Codes: Patient History: CHEST PAIN, NUMBNESS IN FACE/NECK, HTN, ELEVATED CHOLESTEROL, FORMER SMOKER, CABG X 2 Medications: Meds past 24 hrs: Pretest Chest Pain: STRESS TEST Lexiscan Protocol Exercise Duration (min:sec): 01:[address] Depressions (mm): Angina Score: Gibson Score: Resting HR (bpm): 69 Peak HR (bpm): 101 Resting BP (mmHg): 158 / 86 Peak BP (mmHg): 162 / 83 MPHR: 170 Target HR: 145 % MPHR: 59 METS: 1.0 Total Dose: Peak Dose: Atropine: Double Product: 29139 BP Response: Stress Termination: INFUSION COMPLETE Stress Symptoms: NO SYMPTOMS Stress Summary: ECG ANALYSIS Resting ECG: Sinus rhythm. Normal conduction. No arrhythmias. Normal repolarization. Stress ECG: No ECG changes from baseline with Lexiscan infusion. CONCLUSIONS No ECG evidence of ischemia with Lexiscan infusion. Nuclear test results to follow. Dr. Kelli Kinsey MD (Electronically Signed) Final Date: 23 July 2022 12:57
== END 2022-07-23 15:00 | disposition home or self-care (01) ==
LOC: EC 05:30 → 6NMEDSUR 07:23
PROVIDERS: ADMIT Internal Medicine; ATTEND Internal Medicine
DX: R07.89 Other chest pain (principal); I10 Essential (primary) hypertension; E78.5 Hyperlipidemia, unspecified; I25.10 Atherosclerotic heart disease of native coronary artery without angina pectoris; Z87.891 Personal history of nicotine dependence; Z95.1 Presence of aortocoronary bypass graft; Z79.82 Long term (current) use of aspirin; Z79.899 Other long term (current) drug therapy; Z80.3 Family history of malignant neoplasm of breast; Z92.21 Personal history of antineoplastic chemotherapy; Z92.3 Personal history of irradiation; Z80.8 Family history of malignant neoplasm of other organs or systems
CPT/HCPCS: 99285; 36415; 93005; 93017; 93306; 80053; 83735; 84484; 85025; 85610; 85730; 71046; 78452; G0378; A9500; J2785

== ENCOUNTER 2022-10-19 16:15 | Emergency (ER) | payer OTHER ==
[2022-10-19 16:38] VITALS: BP 150/90; PULSE 70; RESP 18; TEMP 97.9
[2022-10-19 18:06] LABS: Basophils % (A) 1 %; Eosinophils # (A) 0.2 k/uL (0-0.7); Eosinophils % (A) 2 %; HGB 14.2 gm/dL (11.4-16.0); Lymphocytes # (A) 1.6 k/uL (1.0-4.8); Lymphocytes % (A) 21 %; MCH 29.9 pg (25.0-35.0); MCHC 35.5 g/dL (31.0-37.0); MCV 84.3 fL (80.0-100.0); Mean Platelet Volume 9.4; Monocytes # (A) 0.3 k/uL (0-1.0); Monocytes % (A) 4 %; Neutrophils # (A) 5.6 k/uL (1.3-7.7); Neutrophils % (A) 72 %; Platelet Count 195 k/uL (150-450); RBC 4.75 m/uL (3.80-5.40); RDW 12.9 % (11.5-15.5); WBC 7.9 k/uL (3.8-10.6)
--- NOTE | 2022-10-19 18:40 | CT ---
EXAMINATION TYPE: CT brain wo con DATE OF EXAM: 10/19/2022 COMPARISON: 06/29/2018 HISTORY: left sided weakness/ numbness. CT DLP: 1099.4 mGycm Automated exposure control for dose reduction was used. Images obtained of the brain with no contrast. Ventricles have normal size. There is no mass effect or midline shift. No sign of intracranial hemorr freddy. The calvarium is intact. There is mucosal thickening in the maxillary sinuses. There is normal aeration of the mastoid sinuses. IMPRESSION: Normal CT scan of the brain. Maxillary sinusitis.
--- NOTE | 2022-10-19 18:48 | XR ---
EXAMINATION TYPE: XR chest 2V DATE OF EXAM: 10/19/2022 COMPARISON: NONE HISTORY: Altered mental status TECHNIQUE: 2 views FINDINGS: Heart is normal. Lungs are clear. Diaphragm is normal. Bony thorax is normal. There are bishnu rnal wires. IMPRESSION: Normal chest. No change.
--- NOTE | 2022-10-19 19:11 | ED ---
General Adult HPI - General Chief complaint: Neuro Symptoms/Deficit Stated complaint: lt sided tingling Time Seen by Provider: 10/19/22 17:05 Source: patient Mode of arrival: wheelchair Limitations: no limitations - History of Present Illness Initial comments: 52-year-old female with past medical history of type a aortic dissection, hypertension who presents to the emergency department with reported numbness to her left neck and arm. States that she has felt fatigued today. She took a nap and woke up around 3 PM when she felt like she had some numbness to the posterior aspect of her left neck which radiated into the top of her shoulder. She denies any weakness in her arm or leg. No numbness in her face. No headaches, speech deficits, confusion. No history of stroke. She does have a history of dissection and therefore she states that she gets extremely nervous when she has any sort of paresthesia. She does report some tenderness to pa lpation of the left trapezius. No fevers or chills. No recent medication changes. Has noted that her blood pressure has been running a little bit high over the past couple of days. She has been taking her medications as directed. Denies any chest pain or shortness of breath. No numbness or tingling in her legs. No other alleviating, precipitating or modifying factors - Related Data Home Medications Medication Instructions Recorded Confirmed Aspirin EC [Ecotrin Low Dose] 81 mg PO DAILY 10/20/21 07/23/22 Atorvastatin [Lipitor] 80 mg PO HS 10/20/21 07/23/22 carvediloL [Coreg] 25 mg PO BID 10/20/21 07/23/22 ALPRAZolam [Xanax] 0.25 mg PO DAILY PRN 07/23/22 07/23/22 Baclofen [Lioresal] 20 mg PO TID 07/23/22 07/23/22 Cholecalciferol (Vitamin D3) 75 mcg PO DAILY 07/23/22 07/23/22 [Vitamin D3 (3000 Iu)] Losartan [Cozaar] 25 mg PO DAILY 07/23/22 07/23/22 Nitroglycerin Sl Tabs [Nitrostat] 0.4 mg SUBLINGUAL Q5M PRN 07/23/22 07/23/22 Potassium Gluconate [Potassium 99 mg PO DAILY 07/23/22 07/23/22 Gluconate ER] carvediloL [Coreg] 25 mg PO BID 07/23/22 07/23/22 Allergies Allergy/AdvReac Type Severity Reaction Status Date / Time bee venom protein (honey bee) Allergy Swelling Verified 07/23/22 07:51 Review of Systems ROS Statement: Those systems with pertinent positive or pertinent negative responses have been documented in the HPI. ROS Other: All systems not noted in ROS Statement are negative. Past Medical History Past Medical History: Hypertension Additional Past Medical History / Comment(s): Aortic Aneurysm dissection in 2019 History of Any Multi-Drug Resistant Organisms: ESBL Date of last positivie culture/infection: 06/11/22 ESBL E.coli MDRO Source:: Urine Past Surgical History: Coronary Bypass/CABG, Tubal Ligation Additional Past Surgical History / Comment(s): eye surgery, double bypass 2019, aortic dissection surgery 2019 Past Anesthesia/Blood Transfusion Reactions: No Reported Reaction Past Psychological History: No Psychological Hx Reported Smoking Status: Former smoker Past Alcohol Use History: None Reported Past Drug Use History: None Reported - Past Family History Mother Family Medical History: Cancer Additional Family Medical History / Comment(s): mom is currently age 69. Had history of breast cancer with radiation and chemo. Father Family Medical History: Cancer Additional Family Medical History / Comment(s): at age 41 of brain cancer. General Exam Limitations: no limitations General appearance: alert, in no apparent distress Head exam: Present: atraumatic, normocephalic, normal inspection Eye exam: Present: normal appearance, PERRL, EOMI. Absent: scleral icterus, conjunctival injection, periorbital swelling ENT exam: Present: normal exam, mucous membranes moist Neck exam: Present: normal inspection. Absent: tenderness, meningismus, lymphadenopathy Respiratory exam: Present: normal lung sounds bilaterally. Absent: respiratory distress, wheezes, rales, rhonchi, stridor Cardiovascular Exam: Present: regular rate, normal rhythm, normal heart sounds. Absent: systolic murmur, diastolic murmur, rubs, gallop, clicks GI/Abdominal exam: Present: soft, normal bowel sounds. Absent: distended, tenderness, guarding, rebound, rigid Extremities exam: Present: normal inspection, full ROM, tenderness (2+ palpable radial pulses bilaterally. Tenderness to palpation of the left trapezius muscle. Equal piling setter strength.), normal capillary refill. Absent: pedal edema, joint swelling, calf tenderness Back exam: Present: normal inspection Neurological exam: Present: alert, oriented X3, CN II-XII intact Psychiatric exam: Present: normal affect, normal mood Skin exam: Present: warm, dry, intact, normal color. Absent: rash Course Vital Signs 10/19/22 16:35 Temperature 97.9 F Pulse Rate 70 Respiratory 18 Rate Blood Pressure 150/90 O2 Sat by Pulse 98 Oximetry EKG Findings - EKG Comments: EKG Findings:: EKG demonstrates sinus rhythm with a rate of 67. HI interval 161. QRS 92. QTC of 402. No acute ST segment elevations or depressions EKG interpreted by myself Medical Decision Making - Medical Decision Making Was pt. sent in by a medical professional or institution? @ -No Did you speak to anyone other than the patient for history? @ -No Did you review nursing and triage notes? @ -Yes and I agree Were old charts reviewed? @ -I reviewed patient's previous records to include the diagnosis of her type a dissection and cardiac workups following her surgery Differential Diagnosis? @ - Stable Angina, Unstable Angina, STEMI, NSTEMI Aortic Dissection, Pneumothorax, Musculoskeletal, Esophageal Spasm GERD, Cholecystitis, Pancreatitis, Zoster, Stroke this is not meant to be an all-inclusive list. EKG interpreted by me (3pts min.)? @ -Yes X-rays interpreted by me (1pt min.)? @ -Yes CT interpreted by me (1pt min.)? @ -Not performed U/S interpreted by me (1pt. min.)? @ -Performed What testing was considered but not performed? (CT, X-rays, U/S, labs)? Why? @ CT of the chest considered however patient does not have chest pain, weakness, leg numbness but does have reproducible tenderness to the left trapezius muscle into the left shoulder. Patient has had multiple CTs of her aneurysm performed What meds were considered but not given? Why? @ -None Did you discuss the management of the patient with other professionals? @ -No Did you reconcile home meds? @ -No Was smoking cessation discussed for >3mins.? @ -No Was critical care preformed (if so, how long)? @ -No Were there social determinants of health that impacted care today? How? (Homelessness, low income, unemployed, alcoholism, drug addiction, transportation, low edu. Level, literacy, decrease access to med. care, long term, rehab)? @ -None Was there de-escalation of care discussed even if they declined? (Discuss DNR or withdrawal of care, Hospice)? @ -No What co-morbidities impacted this encounter? (DM, HTN, Smoking, COPD, CAD, Cancer, CVA, Hep., AIDS, mental health diagnosis, sleep apnea, morbid obesity)? @ -Hypertension Was patient admitted / discharged? @ -Discharged Undiagnosed new problem with uncertain prognosis? @ -No Drug Therapy requiring intensive monitoring for toxicity (Heparin, Nitro, Insulin, Cardizem)? @ -No Were any procedures done? @ -No Diagnosis/symptom? @ -Acute left neck pain with cervical radiculopathy. Upon arrival patient is placed into room 20. A thorough history and physical exam was performed. Patient placed on continuous pulse ox and cardiac monitoring. A 12-lead EKG is obtained. Laboratory studies are conducted in the patient goes for a chest x- ray. Upon return results, they are discussed with the patient. Patient states that she is hyperactive when it comes to her symptoms because of her history. I informed her that I do not see anything abnormal from laboratory studies or imaging at this time. Patient can be discharged home and can follow up with her yardmaster in regards to her symptoms. Blood pressure is 140 systolic at this time. Patient may need long-term better control of her blood pressure however blood pressure at this time is in normal range and does not need to be treated immediately. She is to follow-up with her yardmaster at the soonest appointment and return for any new or worsening symptoms. Patient agreeable to the treatment plan and was discharged home in stable condition Acute, or Chronic, or Acute on Chronic? @ -Acute Uncomplicated (without systemic symptoms) or Complicated (systemic symptoms)? @ -Uncomplicated Side effects of treatment? @ -No Exacerbation, Progression, or Severe Exacerbation] @ -None Poses a threat to life or bodily function? @ -No - Lab Data Result diagrams: 10/19/22 17:54 10/19/22 18:50 Lab Results 10/19/22 10/19/22 10/19/22 Range/Units 17:54 18:50 18:50 WBC 7.9 (3.8-10.6) k/uL RBC 4.75 (3.80-5.40) m/uL Hgb 14.2 (11.4-16.0) gm/dL Hct 40.0 (34.0-46.0) % MCV 84.3 (80.0-100.0) fL MCH 29.9 (25.0-35.0) pg MCHC 35.5 (31.0-37.0) g/dL RDW 12.9 (11.5-15.5) % Plt Count 195 (150-450) k/uL MPV 9.4 Neutrophils % 72 % Lymphocytes % 21 % Monocytes % 4 % Eosinophils % 2 % Basophils % 1 % Neutrophils # 5.6 (1.3-7.7) k/uL Lymphocytes # 1.6 (1.0-4.8) k/uL Monocytes # 0.3 (0-1.0) k/uL Eosinophils # 0.2 (0-0.7) k/uL Basophils # 0.0 (0-0.2) k/uL PT 11.2 (9.0-12.0) sec INR 1.1 (<1.2) APTT 24.2 (22.0-30.0) sec Sodium (137-145) mmol/L Potassium (3.5-5.1) mmol/L Chloride (98-107) mmol/L Carbon Dioxide (22-30) mmol/L Anion Gap mmol/L BUN (7-17) mg/dL Creatinine (0.52-1.04) mg/dL Est GFR (CKD-EPI)AfAm (>60 ml/min/1.73 sqM) Est GFR (CKD-EPI)NonAf (>60 ml/min/1.73 sqM) Glucose (74-99) mg/dL Calcium (8.4-10.2) mg/dL Total Bilirubin (0.2-1.3) mg/dL AST (14-36) U/L ALT (4-34) U/L Alkaline Phosphatase (38-126) U/L Troponin I <0.012 (0.000-0.034) ng/mL Total Protein (6.3-8.2) g/dL Albumin (3.5-5.0) g/dL 10/19/22 Range/Units 18:50 WBC (3.8-10.6) k/uL RBC (3.80-5.40) m/uL Hgb (11.4-16.0) gm/dL Hct (34.0-46.0) % MCV (80.0-100.0) fL MCH (25.0-35.0) pg MCHC (31.0-37.0) g/dL RDW (11.5-15.5) % Plt Count (150-450) k/uL MPV Neutrophils % % Lymphocytes % % Monocytes % % Eosinophils % % Basophils % % Neutrophils # (1.3-7.7) k/uL Lymphocytes # (1.0-4.8) k/uL Monocytes # (0-1.0) k/uL Eosinophils # (0-0.7) k/uL Basophils # (0-0.2) k/uL PT (9.0-12.0) sec INR (<1.2) APTT (22.0-30.0) sec Sodium 138 (137-145) mmol/L Potassium 4.1 (3.5-5.1) mmol/L Chloride 107 (98-107) mmol/L Carbon Dioxide 25 (22-30) mmol/L Anion Gap 6 mmol/L BUN 11 (7-17) mg/dL Creatinine 0.80 (0.52-1.04) mg/dL Est GFR (CKD-EPI)AfAm >90 (>60 ml/min/1.73 sqM) Est GFR (CKD-EPI)NonAf 87 (>60 ml/min/1.73 sqM) Glucose 95 (74-99) mg/dL Calcium 9.1 (8.4-10.2) mg/dL Total Bilirubin 0.7 (0.2-1.3) mg/dL AST 19 (14-36) U/L ALT 22 (4-34) U/L Alkaline Phosphatase 31 L (38-126) U/L Troponin I (0.000-0.034) ng/mL Total Protein 6.6 (6.3-8.2) g/dL Albumin 4.1 (3.5-5.0) g/dL Disposition Clinical Impression: Paresthesia Disposition: HOME SELF-CARE Condition: Stable Instructions (If sedation given, give patient instructions): Paresthesia (ED) Additional Instructions: Check your blood pressure and keep a blood pressure log. Follow-up with your yardmaster for further management of your elevated blood pressures and please return for any new or worsening symptoms Is patient prescribed a controlled substance at d/c from ED?: No Referrals: Dallin Wise DO [Primary Care Provider] - 1-2 days Time of Disposition: 20:29
[2022-10-19 19:16] LABS: ALT 22 U/L (4-34); AST 19 U/L (14-36); African American GFR (CKD) >90 (>60 ml/min/1.73 sqM); Albumin 4.1 g/dL (3.5-5.0); Alkaline Phosphatase 31 U/L (38-126); Anion Gap 6 mmol/L; Blood Urea Nitrogen 11 mg/dL (7-17); Calcium 9.1 mg/dL (8.4-10.2); Carbon Dioxide 25 mmol/L (22-30); Chloride 107 mmol/L (98-107); Glucose 95 mg/dL (74-99); Non-African American GFR(CKD) 87 (>60 ml/min/1.73 sqM); Potassium 4.1 mmol/L (3.5-5.1); Sodium 138 mmol/L (137-145); Total Bilirubin 0.7 mg/dL (0.2-1.3); Total Protein 6.6 g/dL (6.3-8.2)
[2022-10-19 19:39] LABS: INR 1.1 (<1.2); Partial Thromboplastin Time 24.2 sec (22.0-30.0); Prothrombin Time 11.2 sec (9.0-12.0)
== END 2022-10-19 20:41 | disposition home or self-care (01) ==
LOC: EC 16:15
DX: R20.2 Paresthesia of skin (principal); I10 Essential (primary) hypertension; Z91.030 Bee allergy status; Z79.82 Long term (current) use of aspirin; Z87.891 Personal history of nicotine dependence
CPT/HCPCS: 36415; 70450; 71046; 80053; 84484; 85025; 85610; 85730; 93005; 99284

== ENCOUNTER 2023-01-27 20:33 | Emergency (ER) | payer OTHER ==
[2023-01-27 20:46] VITALS: TEMP 98.1
--- NOTE | 2023-01-27 21:31 | ED ---
General Adult HPI - General Chief complaint: Chest Pain Stated complaint: chest pain Time Seen by Provider: 01/27/23 21:04 Source: patient, RN notes reviewed, old records reviewed Mode of arrival: ambulatory Limitations: no limitations - History of Present Illness Initial comments: 53-year-old female presenting for evaluation of left upper chest pain and upper back pain. Symptoms have been intermittent throughout the day today. She does not have a history of coronary artery disease. She does have a history of aortic dissection status post graft in 2019. She denies vomiting. Denies abdominal pain. She states her pain today is different from her previous aortic dissection. She was a former smoker. She has a history of hypertension - Related Data Home Medications Medication Instructions Recorded Confirmed Aspirin EC [Ecotrin Low Dose] 81 mg PO DAILY 10/20/21 07/23/22 Atorvastatin [Lipitor] 80 mg PO HS 10/20/21 07/23/22 carvediloL [Coreg] 25 mg PO BID 10/20/21 07/23/22 ALPRAZolam [Xanax] 0.25 mg PO DAILY PRN 07/23/22 07/23/22 Baclofen [Lioresal] 20 mg PO TID 07/23/22 07/23/22 Cholecalciferol (Vitamin D3) 75 mcg PO DAILY 07/23/22 07/23/22 [Vitamin D3 (3000 Iu)] Losartan [Cozaar] 25 mg PO DAILY 07/23/22 07/23/22 Nitroglycerin Sl Tabs [Nitrostat] 0.4 mg SUBLINGUAL Q5M PRN 07/23/22 07/23/22 Potassium Gluconate [Potassium 99 mg PO DAILY 07/23/22 07/23/22 Gluconate ER] carvediloL [Coreg] 25 mg PO BID 07/23/22 07/23/22 Allergies Allergy/AdvReac Type Severity Reaction Status Date / Time bee venom protein (honey bee) Allergy Swelling Verified 01/27/23 20:46 Review of Systems ROS Statement: Those systems with pertinent positive or pertinent negative responses have been documented in the HPI. ROS Other: All systems not noted in ROS Statement are negative. Past Medical History Past Medical History: Hypertension Additional Past Medical History / Comment(s): Aortic Aneurysm dissection in 2019 History of Any Multi-Drug Resistant Organisms: ESBL Date of last positivie culture/infection: 06/11/22 ESBL E.coli MDRO Source:: Urine Past Surgical History: Coronary Bypass/CABG, Tubal Ligation Additional Past Surgical History / Comment(s): eye surgery, double bypass 2019, aortic dissection surgery 2019 Past Anesthesia/Blood Transfusion Reactions: No Reported Reaction Past Psychological History: No Psychological Hx Reported Smoking Status: Former smoker Past Alcohol Use History: None Reported Past Drug Use History: None Reported - Past Family History Mother Family Medical History: Cancer Additional Family Medical History / Comment(s): mom is currently age 69. Had his tory of breast cancer with radiation and chemo. Father Family Medical History: Cancer Additional Family Medical History / Comment(s): at age 41 of brain cancer. General Exam Limitations: no limitations General appearance: alert, in no apparent distress Head exam: Present: atraumatic, normocephalic Eye exam: Present: normal appearance, PERRL ENT exam: Present: normal exam Neck exam: Present: normal inspection. Absent: tenderness Respiratory exam: Present: normal lung sounds bilaterally. Absent: respiratory distress Cardiovascular Exam: Present: regular rate, normal rhythm GI/Abdominal exam: Present: soft. Absent: distended, tenderness Extremities exam: Present: normal inspection, normal capillary refill Neurological exam: Present: alert, oriented X3 Psychiatric exam: Present: normal affect, normal mood Skin exam: Present: warm, dry, intact. Absent: cyanosis, diaphoretic Course Vital Signs 01/27/23 01/28/23 20:44 00:00 Temperature 98.1 F Pulse Rate 83 76 Respiratory 20 18 Rate Blood Pressure 167/90 120/77 O2 Sat by Pulse 97 97 Oximetry EKG Findings - EKG Comments: EKG Findings:: EKG: Sinus rhythm rate of 75, HI interval 163, QRS duration 90, QTC 401, no ST segment elevation Medical Decision Making - Medical Decision Making Was pt. sent in by a medical professional or institution (, PA, TOGGLER, urgent care, hospital, or fpc...) When possible be specific @ -[No] Did you speak to anyone other than the patient for history (EMS, parent, family, police, friend...)? What history was obtained from this source @ -[No] Did you review nursing and triage notes (agree or disagree)? Why? @ -[I reviewed and agree with nursing and triage notes] Were old charts reviewed (outside hosp., previous admission, EMS record, old EKG, old radiological studies, urgent care reports/EKG's, fpc records)? Report findings @ -Reviewed previous imaging including previous chest and pelvis CT Differential Diagnosis (chest pain, altered mental status, abdominal pain women, abdominal pain men, vaginal bleeding, weakness, fever, dyspnea, syncope, headache, dizziness, GI bleed, back pain, seizure, CVA, palpatations, mental health, musculoskeletal)? @ -Differential Chest Pain: Stable Angina, Unstable Angina, STEMI, NSTEMI Aortic Dissection, Pneumothorax, Musculoskeletal, Esophageal Spasm GERD, Cholecystitis, Pancreatitis, Zoster, this is not meant to be an all-inclusive list. EKG interpreted by me (3pts min.). @ -[As above] X-rays interpreted by me (1pt min.). @ -[None done] CT interpreted by me (1pt min.). @ -CT performed of the chest and pelvis showing previous surgical changes to the aorta without acute findings U/S interpreted by me (1pt. min.). @ -[None done] What testing was considered but not performed or refused? (CT, X-rays, U/S, labs)? Why? @ -[None] What meds were considered but not given or refused? Why? @ -[None] Did you discuss the management of the patient with other professionals (professionals i.e. , PA, TOGGLER, lab, RT, psych nurse, forensic social worker, hand collator, teacher, tourist information officer, casework specialist)? Give summary @ -[No] Was smoking cessation discussed for >3mins.? @ -[No] Was critical care preformed (if so, how long)? @ -[No] Were there social determinants of health that impacted care today? How? (Homelessness, low income, unemployed, alcoholism, drug addiction, transportation, low edu. Level, literacy, decrease access to med. care, alf, rehab)? @ -[No] Was there de-escalation of care discussed even if they declined (Discuss DNR or withdrawal of care, Hospice)? DNR status @ -[No] What co-morbidities impacted this encounter? (DM, HTN, Smoking, COPD, CAD, Cancer, CVA, ARF, Chemo, Hep., AIDS, mental health diagnosis, sleep apnea, morbid obesity)? @ -[Retention, aortic dissection status post repair] Was patient admitted / discharged? Hospital course, mention meds given and route, prescriptions, significant lab abnormalities, going to OR and other pertinent info. @ -[53-year-old presenting for evaluation of left upper chest pain and back pain. EKG sinus rhythm without ST segment elevation. CT imaging was performed of the aorta given the patient's history. This was negative for acute change, shows previous surgical intervention to the aorta. No change from prior. Patient has normal CBC, normal CMP, negative initial troponin. I did plan to admit this patient for serial chronic enzymes, telemetry, cardiology consultation. The patient preferred to be discharged. She was agreeable with 3 hour troponin testing. This was performed in the emergency department and again was negative. She was very eager for discharge. She will follow-up with her primary care physician.] Undiagnosed new problem with uncertain prognosis? @ -[No] Drug Therapy requiring intensive monitoring for toxicity (Heparin, Nitro, Insulin, Cardizem)? @ -[No] Were any procedures done? @ -[No] Diagnosis/symptom? @ -[CP ] Acute, or Chronic, or Acute on Chronic? @ -[acute] Uncomplicated (without systemic symptoms) or Complicated (systemic symptoms)? @ -[complicated] Side effects of treatment? @ -[No] Exacerbation, Progression, or Severe Exacerbation? @ -[No] Poses a threat to life or bodily function? How? (Chest pain, [place], [place], pneumonia, PE, COPD, DKA, ARF, appy, cholecystitis, CVA, Diverticulitis, Homicidal, Suicidal, threat to staff... and all critical care pts) @ -[yes, cardiac chest pain, arrhythmia] - Lab Data Result diagrams: 01/27/23 21:20 01/27/23 21:20 Lab Results 01/27/23 01/27/23 01/27/23 Range/Units 21:20 21:20 21:20 WBC 7.2 (3.8-10.6) k/uL RBC 4.59 (3.80-5.40) m/uL Hgb 13.7 (11.4-16.0) gm/dL Hct 38.6 (34.0-46.0) % MCV 84.1 (80.0-100.0) fL MCH 29.9 (25.0-35.0) pg MCHC 35.5 (31.0-37.0) g/dL RDW 12.2 (11.5-15.5) % Plt Count 254 (150-450) k/uL MPV 8.5 Neutrophils % 60 % Lymphocytes % 31 % Monocytes % 5 % Eosinophils % 2 % Basophils % 1 % Neutrophils # 4.3 (1.3-7.7) k/uL Lymphocytes # 2.2 (1.0-4.8) k/uL Monocytes # 0.3 (0-1.0) k/uL Eosinophils # 0.1 (0-0.7) k/uL Basophils # 0.0 (0-0.2) k/uL PT 11.0 (9.0-12.0) sec INR 1.1 (<1.2) APTT 24.0 (22.0-30.0) sec Sodium 138 (137-145) mmol/L Potassium 4.5 (3.5-5.1) mmol/L Chloride 103 (98-107) mmol/L Carbon Dioxide 31 H (22-30) mmol/L Anion Gap 4 mmol/L BUN 15 (7-17) mg/dL Creatinine 0.98 (0.52-1.04) mg/dL Est GFR (CKD-EPI)AfAm 77 (>60 ml/min/1.73 sqM) Est GFR (CKD-EPI)NonAf 67 (>60 ml/min/1.73 sqM) Glucose 95 (74-99) mg/dL Calcium 9.2 (8.4-10.2) mg/dL Magnesium 1.9 (1.6-2.3) mg/dL Total Bilirubin 0.4 (0.2-1.3) mg/dL AST 18 (14-36) U/L ALT 23 (4-34) U/L Alkaline Phosphatase 25 L (38-126) U/L Troponin I (0.000-0.034) ng/mL Total Protein 6.5 (6.3-8.2) g/dL Albumin 3.9 (3.5-5.0) g/dL 01/27/23 01/28/23 Range/Units 21:20 00:01 WBC (3.8-10.6) k/uL RBC (3.80-5.40) m/uL Hgb (11.4-16.0) gm/dL Hct (34.0-46.0) % MCV (80.0-100.0) fL MCH (25.0-35.0) pg MCHC (31.0-37.0) g/dL RDW (11.5-15.5) % Plt Count (150-450) k/uL MPV Neutrophils % % Lymphocytes % % Monocytes % % Eosinophils % % Basophils % % Neutrophils # (1.3-7.7) k/uL Lymphocytes # (1.0-4.8) k/uL Monocytes # (0-1.0) k/uL Eosinophils # (0-0.7) k/uL Basophils # (0-0.2) k/uL PT (9.0-12.0) sec INR (<1.2) APTT (22.0-30.0) sec Sodium (137-145) mmol/L Potassium (3.5-5.1) mmol/L Chloride (98-107) mmol/L Carbon Dioxide (22-30) mmol/L Anion Gap mmol/L BUN (7-17) mg/dL Creatinine (0.52-1.04) mg/dL Est GFR (CKD-EPI)AfAm (>60 ml/min/1.73 sqM) Est GFR (CKD-EPI)NonAf (>60 ml/min/1.73 sqM) Glucose (74-99) mg/dL Calcium (8.4-10.2) mg/dL Magnesium (1.6-2.3) mg/dL Total Bilirubin (0.2-1.3) mg/dL AST (14-36) U/L ALT (4-34) U/L Alkaline Phosphatase (38-126) U/L Troponin I <0.012 <0.012 (0.000-0.034) ng/mL Total Protein (6.3-8.2) g/dL Albumin (3.5-5.0) g/dL Disposition Clinical Impression: Chest pain of unknown etiology Disposition: HOME SELF-CARE Condition: Good Instructions (If sedation given, give patient instructions): Chest Pain (ED) Is patient prescribed a controlled substance at d/c from ED?: No Referrals: Dallin Wise DO [Primary Care Provider] - 1-2 days Time of Disposition: 00:46
[2023-01-27 21:53] LABS: Basophils % (A) 1 %; Eosinophils # (A) 0.1 k/uL (0-0.7); Eosinophils % (A) 2 %; HCT 38.6 % (34.0-46.0); HGB 13.7 gm/dL (11.4-16.0); Lymphocytes # (A) 2.2 k/uL (1.0-4.8); Lymphocytes % (A) 31 %; MCH 29.9 pg (25.0-35.0); MCHC 35.5 g/dL (31.0-37.0); MCV 84.1 fL (80.0-100.0); Mean Platelet Volume 8.5; Monocytes # (A) 0.3 k/uL (0-1.0); Monocytes % (A) 5 %; Neutrophils # (A) 4.3 k/uL (1.3-7.7); Neutrophils % (A) 60 %; Platelet Count 254 k/uL (150-450); RBC 4.59 m/uL (3.80-5.40); RDW 12.2 % (11.5-15.5); WBC 7.2 k/uL (3.8-10.6)
[2023-01-27 22:09] LABS: Albumin 3.9 g/dL (3.5-5.0); Calcium 9.2 mg/dL (8.4-10.2); Magnesium 1.9 mg/dL (1.6-2.3); Potassium 4.5 mmol/L (3.5-5.1); Total Bilirubin 0.4 mg/dL (0.2-1.3); Total Protein 6.5 g/dL (6.3-8.2)
[2023-01-27 22:10] LABS: INR 1.1 (<1.2)
--- NOTE | 2023-01-27 22:46 | CT ---
EXAMINATION TYPE: CT angio thor/abd pel aorta CT DLP: 1730.3 mGycm, Automated exposure control for dose reduction was used. DATE OF EXAM: 01/27/2023 10:15 PM COMPARISON: 06/10/2022. CLINICAL INDICATION:Female, 53 years old with history of CP/Back pain Hx of dissection, R/O dissectio n. Hx of aortic dissection in 2021 TECHNIQUE: Dissection protocol: Multiple axial CT images of the chest, abdomen, and pelvis were obtai mili prior and to the administration of IV contrast. 3-D reformats and maximum intensity projection fo rmat were performed on a separate workstation. Contrast used:100cc mL of Isovue 370 with IV Contrast, Oral contrast used: None FINDINGS: ARTERIAL VASCULATURE: No evidence for intramural hematoma on noncontrast imaging. Postcontrast imagin g demonstrates similar morphology to the ascending thoracic aorta repair when comparing to prior on . The major vessels of the aortic arch are patent. The descending thoracic aorta is patent. T here is aortic dissection which is similar to immediate prior with high density contrast within the f alse lumen. The celiac artery, superior mesenteric artery and right renal artery originating off the true lumen. The false lumen contains the left renal artery. There is high density contrast within the false lumen. Multiple fenestrations are noted within the dissection intimal flap most pronounced at the series 501 image 161. Mild scattered atherosclerotic disease of the arterial vasculature. PULMONARY ARTERIAL VASCULATURE: Normal caliber. No evidence of filling defect to suggest pulmonary em bolus. VENOUS SYSTEM: Unremarkable. Lungs/pleura: The lung parenchyma appears unremarkable. Heart: Within normal limits. Mediastinum: No gross evidence of adenopathy. Lower Neck: No significant findings. Abdomen: Liver: Unremarkable. Gallbladder and Bile ducts: Unremarkable. Pancreas: Unremarkable. Spleen: Unremarkable. Adrenal glands: Unremarkable. Kidneys and Ureters: Unremarkable. No hydronephrosis. Bladder: Unremarkable. Reproductive: Unremarkable. Stomach and Bowel: Unremarkable. No evidence of bowel obstruction. Peritoneum: No evidence of pneumoperitoneum, free fluid, or adenopathy. Musculoskeletal: The osseous structures appear intact. Sternotomy wires are present. Lymph nodes: No evidence of lymphadenopathy. Abdominal wall/soft tissues: Unremarkable. IMPRESSION: 1. Similar ascending thoracic aorta dissection extending to the distal infrarenal abdominal aorta th e false lumen contains left renal artery. No new aneurysm or dissection present. 2. Similar surgical changes to the ascending thoracic aorta. 3. No evidence for pulmonary embolus.
[2023-01-28 00:03] VITALS: RESP 18
[2023-01-28 00:57] VITALS: BP 117/79; PULSE 83
== END 2023-01-28 00:57 | disposition home or self-care (01) ==
LOC: EC 20:33
DX: R07.89 Other chest pain (principal); I10 Essential (primary) hypertension; Z79.82 Long term (current) use of aspirin; Z79.899 Other long term (current) drug therapy; Z87.891 Personal history of nicotine dependence; Z91.030 Bee allergy status
CPT/HCPCS: 36415; 93005; 80053; 83735; 84484; 85025; 85610; 85730; 71275; 74174; 99285; Q9967

== ENCOUNTER → 2023-02-11 | Outpatient (CLI) | payer OTHER ==
--- NOTE | 2023-03-19 01:18 | EM ---
EVENT MONITOR A 30-day event monitor. INDICATION: Palpitations. Underlying rhythm is sinus. Rare PVCs are noted. There were episodes of sinus tachycardia. CONCLUSION: This 30-day event monitor did not reveal significant Holter abnormalities. MMODL / IJN: [id number] /
== END | disposition home or self-care (01) ==
LOC: RADECHMAIN 07:46
PROVIDERS: ATTEND Family Medicine
DX: R00.2 Palpitations (principal); I71.00 Dissection of unspecified site of aorta; R07.89 Other chest pain
CPT/HCPCS: 93270

== ENCOUNTER 2024-01-19 14:07 | Emergency (ER) | payer BC ==
[2024-01-19] MEDS: ASPIRIN 81 MG PO STA (14:48)
[2024-01-19] MEDS: SODIUM CHLORIDE 0.9% 500 ML 500 ML IV STA (14:49)
[2024-01-19 14:51] LABS: Basophils % (A) 0 %; Eosinophils # (A) 0.1 k/uL (0-0.7); Eosinophils % (A) 1 %; HCT 39.3 % (34.0-46.0); HGB 13.3 gm/dL (11.4-16.0); Lymphocytes # (A) 1.8 k/uL (1.0-4.8); Lymphocytes % (A) 21 %; MCH 29.6 pg (25.0-35.0); MCHC 33.9 g/dL (31.0-37.0); MCV 87.3 fL (80.0-100.0); Mean Platelet Volume 8.9; Monocytes # (A) 0.4 k/uL (0-1.0); Monocytes % (A) 4 %; Neutrophils # (A) 6.3 k/uL (1.3-7.7); Neutrophils % (A) 73 %; Platelet Count 210 k/uL (150-450); WBC 8.7 k/uL (3.8-10.6)
[2024-01-19 14:59] LABS: ALT 17 U/L (4-34); AST 17 U/L (14-36); African American GFR (CKD) 80 (>60 ml/min/1.73 sqM); Albumin 3.9 g/dL (3.5-5.0); Alkaline Phosphatase 29 U/L (38-126); Anion Gap 9 mmol/L; Blood Urea Nitrogen 8 mg/dL (7-17); Calcium 9.3 mg/dL (8.4-10.2); Carbon Dioxide 24 mmol/L (22-30); Chloride 107 mmol/L (98-107); Glucose 111 mg/dL (74-99); Magnesium 1.8 mg/dL (1.6-2.3); Non-African American GFR(CKD) 70 (>60 ml/min/1.73 sqM); Potassium 4.3 mmol/L (3.5-5.1); Sodium 140 mmol/L (137-145); Total Bilirubin 0.6 mg/dL (0.2-1.3); Total Protein 6.6 g/dL (6.3-8.2)
[2024-01-19 15:04] LABS: Partial Thromboplastin Time 24.5 sec (22.0-30.0)
[2024-01-19 15:07] LABS: NT-Pro-B-Type Natriuretic Pept 254 pg/mL
--- NOTE | 2024-01-19 15:25 | ED ---
Chest Pain HPI - General Chief Complaint: Chest Pain Stated Complaint: Chest Pain Time Seen by Provider: 01/19/24 14:25 Source: patient, family, RN notes reviewed Mode of arrival: ambulatory Limitations: no limitations - History of Present Illness Initial Comments: 54-year-old female presents emergency department with chief complaint of chest pain. Patient states she has had some on and off symptoms symptoms last night and worsened today. Patient states she has pain in center of her chest and some discomfort in her back. Patient states this is more of a sharp pain she states it was not a tearing sensation which she states she has felt that before when she had her prior aortic dissection. She states this was repaired in 1999. She has monitored closely by cardiothoracic. Patient denies any prior cardiac stents denies any nausea vomiting no diaphoretic episodes no shortness of breath. Patient does have a history of hypertension. - Related Data Home Medications Medication Instructions Recorded Confirmed Aspirin EC [Ecotrin Low Dose] 81 mg PO DAILY 10/20/21 07/23/22 Atorvastatin [Lipitor] 80 mg PO HS 10/20/21 07/23/22 carvediloL [Coreg] 25 mg PO BID 10/20/21 07/23/22 ALPRAZolam [Xanax] 0.25 mg PO DAILY PRN 07/23/22 07/23/22 Baclofen [Lioresal] 20 mg PO TID 07/23/22 07/23/22 Cholecalciferol (Vitamin D3) 75 mcg PO DAILY 07/23/22 07/23/22 [Vitamin D3 (3000 Iu)] Losartan [Cozaar] 25 mg PO DAILY 07/23/22 07/23/22 Nitroglycerin Sl Tabs [Nitrostat] 0.4 mg SUBLINGUAL Q5M PRN 07/23/22 07/23/22 Potassium Gluconate [Potassium 99 mg PO DAILY 07/23/22 07/23/22 Gluconate ER] carvediloL [Coreg] 25 mg PO BID 07/23/22 07/23/22 Allergies Allergy/AdvReac Type Severity Reaction Status Date / Time bee venom protein (honey bee) Allergy Swelling Verified 01/27/23 20:46 Review of Systems ROS Statement: Those systems with pertinent positive or pertinent negative responses have been documented in the HPI. ROS Other: All systems not noted in ROS Statement are negative. EKG Findings - EKG Comments: EKG Findings:: EKG performed at 14: 23 sinus rhythm rate of 74 NJ 168 QRS 92 QT/QTc 360/387 there is inverted T wave in aVL/Q wave - EKG Results: EKG: interpreted by RAUL Past Medical History Past Medical History: Hypertension Additional Past Medical History / Comment(s): Aortic Aneurysm dissection in 2019 History of Any Multi-Drug Resistant Organisms: ESBL Date of last positivie culture/infection: 06/11/22 ESBL E.coli MDRO Source:: Urine Past Surgical History: Coronary Bypass/CABG, Tubal Ligation Additional Past Surgical History / Comment(s): eye surgery, double bypass 2019, aortic dissection surgery 2019 Past Anesthesia/Blood Transfusion Reactions: No Reported Reaction Past Psychological History: No Psychological Hx Reported Smoking Status: Former smoker Past Alcohol Use History: None Reported Past Drug Use History: None Reported - Past Family History Mother Family Medical History: Cancer Additional Family Medical History / Comment(s): mom is currently age 69. Had history of breast cancer with radiation and chemo. Father Family Medical History: Cancer Additional Family Medical History / Comment(s): at age 41 of brain cancer. General Exam Limitations: no limitations General appearance: alert, in no apparent distress Head exam: Present: atraumatic, normocephalic, normal inspection Eye exam: Present: normal appearance, PERRL, EOMI. Absent: scleral icterus, conjunctival injection, periorbital swelling ENT exam: Present: normal exam, normal oropharynx, mucous membranes moist Neck exam: Present: normal inspection, full ROM. Absent: tenderness, meningismus, lymphadenopathy Respiratory exam: Present: normal lung sounds bilaterally. Absent: respiratory distress, wheezes, rales, rhonchi, stridor Cardiovascular Exam: Present: regular rate, normal rhythm, normal heart sounds. Absent: systolic murmur, diastolic murmur, rubs, gallop, clicks GI/Abdominal exam: Present: soft, normal bowel sounds. Absent: distended, tenderness, guarding, rebound, rigid Neurological exam: Present: alert, oriented X3, CN II-XII intact, reflexes normal. Absent: motor sensory deficit Skin exam: Present: warm, dry, intact, normal color. Absent: rash Course Vital Signs 01/19/24 01/19/24 01/19/24 14:13 14:36 14:45 Temperature 97.8 F 98.6 F Pulse Rate 76 73 Pulse Rate [ 73 Pt Sitter ] Respiratory 16 18 Rate Blood Pressure 134/79 136/71 O2 Sat by Pulse 98 97 Oximetry 01/19/24 15:34 Temperature Pulse Rate 76 Pulse Rate [ Pt Sitter ] Respiratory 17 Rate Blood Pressure 140/72 O2 Sat by Pulse 96 Oximetry Chest Pain MDM - MDM Was pt. sent in by a medical professional or institution (, ANA, CONCRETE SPREADER, urgent care, hospital, or long-term...) When possible be specific @ -No Did you speak to anyone other than the patient for history (EMS, parent, family, police, friend...)? What history was obtained from this source @ -No Did you review nursing and triage notes (agree or disagree)? Why? @ -I reviewed and agree with nursing and triage notes Were old charts reviewed (outside hosp., previous admission, EMS record, old EKG, old radiological studies, urgent care reports/EKG's, long-term records)? Report findings @ -[Reviewed prior EKG Differential Diagnosis (chest pain, altered mental status, abdominal pain women, abdominal pain men, vaginal bleeding, weakness, fever, dyspnea, syncope, headache, dizziness, GI bleed, back pain, seizure, CVA, palpatations, mental health, musculoskeletal)? @ -Differential Chest Pain: Stable Angina, Unstable Angina, STEMI, NSTEMI Aortic Dissection, Pneumothorax, Musculoskeletal, Esophageal Spasm GERD, Cholecystitis, Pancreatitis, Zoster, this is not meant to be an all-inclusive list. EKG interpreted by me (3pts min.). @ -As above X-rays interpreted by me (1pt min.). @ -None done CT interpreted by me (1pt min.). @ -CT angio thoracic abdominal aortic shows stable dissection and repair U/S interpreted by me (1pt. min.). @ -None done What testing was considered but not performed or refused? (CT, X-rays, U/S, labs)? Why? @ -None What meds were considered but not given or refused? Why? @ -None Did you discuss the management of the patient with other professionals (professionals i.e. , ANA, CONCRETE SPREADER, lab, RT, psych nurse, social insurance adviser, director script, teacher, first officer, caseworker)? Give summary @ -No Was smoking cessation discussed for >3mins.? @ -No Was critical care preformed (if so, how long)? @ -No Were there social determinants of health that impacted care today? How? (Homelessness, low income, unemployed, alcoholism, drug addiction, transportation, low edu. Level, literacy, decrease access to med. care, intermediate, rehab)? @ -No Was there de-escalation of care discussed even if they declined (Discuss DNR or withdrawal of care, Hospice)? DNR status @ -No What co-morbidities impacted this encounter? (DM, HTN, Smoking, COPD, CAD, Cancer, CVA, ARF, Chemo, Hep., AIDS, mental health diagnosis, sleep apnea, morbid obesity)? @ -Aortic dissection, hypertension Was patient admitted / discharged? Hospital course, mention meds given and route, prescriptions, significant lab abnormalities, going to OR and other pertinent info. @ -AMA patient advised to be admitted secondary to cardiac risk factors, chest pain and back pain. Patient did have a stable CT and labs though she is very high risk and there is concern for cardiac disease she understands the risk of leaving including her in room who states that they will go to [facility] if need be. Patient states she is symptom-free and signed out AGAINST MEDICAL ADVICE. Undiagnosed new problem with uncertain prognosis? @ -No Drug Therapy requiring intensive monitoring for toxicity (Heparin, Nitro, Insulin, Cardizem)? @ -No Were any procedures done? @ -No Diagnosis/symptom? @ -Chest pain Acute, or Chronic, or Acute on Chronic? @ -Acute Uncomplicated (without systemic symptoms) or Complicated (systemic symptoms)? @ -uncomplicated Side effects of treatment? @ -No Exacerbation, Progression, or Severe Exacerbation? @ -No Poses a threat to life or bodily function? How? (Chest pain, USA, VT, pneumonia, PE, COPD, DKA, ARF, appy, cholecystitis, CVA, Diverticulitis, Homicidal, Suicidal, threat to staff... and all critical care pts) @ -No Disposition Clinical Impression: Chest pain Disposition: LEFT AGAINST MEDICAL ADVICE Referrals: Dallin Wise DO [Primary Care Provider] - 1-2 days Time of Disposition: 16:13
--- NOTE | 2024-01-19 15:57 | CT ---
EXAMINATION TYPE: CT angio thor/abd pel aorta DATE OF EXAM: 01/19/2024 INDICATION: pain, history of dissection COMPARISON: 01/27/2023 CT DLP: 1452.7 mGycm CONTRAST: Performed and without and with IV Contrast, patient injected with 70ml mL of Isovue 370. TECHNIQUE: Axial images at 5 mm thick sections. Reconstructed images in the coronal plane. Delayed images through the kidneys. FINDINGS: There is a three-vessel arch. There appears to be some tortuosity of the ascending thoracic aorta. This is stable from comparison study Aortic arch is normal. The descending thoracic aortic di ssection beginning in the proximal descending thoracic aorta is similar to comparison. Small secondar y lumen is present. The main descending thoracic aorta extends to the celiac artery and superior mese nteric artery which are patent. The right renal artery is patent. Left renal artery extends from the smaller secondary lumen. Dissection terminates below the renal arteries. No aneurysmal dilatation of the abdominal aorta is evident. Distal common iliac internal and external iliac and common femoral ar teries appear patent CT CHEST: Portion of the thyroid visualized is normal. No suspicious lung nodules or focal infiltrates are present. No enlarged mediastinal or hilar adenopathy is evident. The ascending aorta diameter at the level of the main pulmonary artery is 2.9 cm. The main pulmonary artery diameter at the bifurcation is 2.[address] ABDOMEN: Liver: Normal Spleen: Normal Pancreas: Normal Adrenal glands: The adrenal glands are normal. Gallbladder: Normal Kidneys: No masses are evident. No hydronephrosis is present. No cysts are present. Delayed images were obtained through the kidneys, which remain unremarkable. Aorta: See above Inferior vena cava: Normal. CT PELVIS: Loops of bowel within the abdomen and pelvis are normal. There are loops of bowel which are incom pletely distended or lack oral contrast limiting their evaluation. Appendix: Normal as visualized. Urinary bladder: Normal. Genitourinary structures: Uterus is prominent. Adnexa appear within normal limits. A 2 cm cyst may be on the right ovary. Osseous structures: No suspicious lytic or sclerotic lesions. IMPRESSION: 1. Stable descending thoracic aortic dissection. 2. Stable appearance of the ascending thoracic aorta
[2024-01-19 16:29] VITALS: BP 129/79; PULSE 75; RESP 18; TEMP 98
== END 2024-01-19 16:25 | disposition left against medical advice (07) ==
LOC: EC 14:07
DX: I71.010 Dissection of ascending aorta (principal); I10 Essential (primary) hypertension; Z87.891 Personal history of nicotine dependence; Z91.030 Bee allergy status; Z95.1 Presence of aortocoronary bypass graft; Z79.82 Long term (current) use of aspirin; Z53.29 Procedure and treatment not carried out because of patient's decision for other reasons
CPT/HCPCS: 36415; 93005; 83880; 80053; 83735; 84484; 85025; 85610; 85730; 71275; 74174; 99285; Q9967

== ENCOUNTER → 2025-02-03 | Outpatient (CLI) | payer BC ==
--- NOTE | 2025-02-03 10:29 | MM ---
Reason for Exam: Screening (asymptomatic). Baseline mammogram. Patient History: Menarche at age 16. First Full-Term at age 22. Maternal aunt had breast cancer, age 60. Maternal aunt had breast cancer, age 65. Mother had breast cancer, age 38. Risk Values: Doris 5 year model risk: 1.9%. NCI Lifetime model risk: 14.4%. Prior Study Comparison: Patient's first Mammogram. Tissue Density: The breasts are extremely dense, which lowers the sensitivity of mammography. Findings: Loosely grouped calcifications upper outer quadrant left breast. And benign-appearing calcifications. Overall Assessment: Incomplete: need additional imaging evaluation, BI-RAD 0 Management: Special View Mammogram of the left breast. . Patient should continue monthly self-breast exams. A clinical breast exam by your physician is recommended on an annual basis. This exam should not preclude additional follow-up of suspicious palpable abnormalities. Note on Doris scores and lifetime risk: 1. A Doris score greater than 3% is considered moderate risk. If this is the case, consider specialist referral to assess eligibility for a risk reducing agent. 2. If overall lifetime risk for the development of breast cancer is 20% or higher, the patient may qualify for future screening with alternating mammogram and breast MRI. [facility], , 02/03/2025 10:26 AM. Electronically signed and approved by: Rod Cash M.D. Radiologis
== END | disposition home or self-care (01) ==
LOC: RADMAMWWP 07:34
PROVIDERS: ATTEND Family Medicine
DX: Z12.31 Encounter for screening mammogram for malignant neoplasm of breast (principal); R92.343 Mammographic extreme density, bilateral breasts; R92.1 Mammographic calcification found on diagnostic imaging of breast; Z80.3 Family history of malignant neoplasm of breast
CPT/HCPCS: 77063; 77067

== ENCOUNTER → 2025-02-07 | Outpatient (CLI) | payer BC ==
--- NOTE | 2025-02-07 12:30 | MM ---
Reason for Exam: Additional evaluation requested from abnormal screening. Last screening mammogram was performed less than 1 month ago. Patient History: Menarche at age 16. First Full-Term at age 22. Maternal aunt had breast cancer, age 60. Maternal aunt had breast cancer, age 65. Mother had breast cancer, age 38. Risk Values: Doris 5 year model risk: 1.9%. NCI Lifetime model risk: 14.4%. Prior Study Comparison: 02/03/2025 Bilateral MG 3D screening mammo w/cad, [facility]. Tissue Density: Left: The breasts are heterogeneously dense, which may obscure small masses. Findings: Analyzed By CAD. There are loosely grouped calcifications upper outer left breast. Precautionary six-month follow-up is recommended. No suspicious clusters appreciated with certainty. Overall Assessment: Probably benign, BI-RAD 3 Management: Diagnostic Mammogram of the left breast in 6 months. . Results were given to the patient verbally at the time of exam. Patient should continue monthly self-breast exams. A clinical breast exam by your physician is recommended on an annual basis. This exam should not preclude additional follow-up of suspicious palpable abnormalities. Note on Doris scores and lifetime risk: 1. A Doris score greater than 3% is considered moderate risk. If this is the case, consider specialist referral to assess eligibility for a risk reducing agent. 2. If overall lifetime risk for the development of breast cancer is 20% or higher, the patient may qualify for future screening with alternating mammogram and breast MRI. [facility], , 02/07/2025 7:40 AM. Electronically signed and approved by: Evangelist Elizondo M.D. Radiologis
== END | disposition home or self-care (01) ==
LOC: RADMAMWWP 07:11
PROVIDERS: ATTEND Family Medicine
DX: R92.8 Other abnormal and inconclusive findings on diagnostic imaging of breast (principal); R92.332 Mammographic heterogeneous density, left breast; Z80.3 Family history of malignant neoplasm of breast
CPT/HCPCS: 77061; 77065